=== PATIENT | male | born 1965 | race Caucasian/White ===

== ENCOUNTER 2024-10-05 15:00 | Outpatient (RCR) | payer OTHER, SELFPAY ==
--- NOTE | 2024-07-20 16:23 | HMH.PTOPWND ---
Rehab Outpt Wound Evaluation Rehab OP Wound Evaluation Start: 07/20/24 16:02 Freq: Status: Active Protocol: Document 07/20/24 16:04 ANOOP (Rec: 07/20/24 16:23 PHOJOAN [id number]) E-signed By Devaughn Swartz, PT Subjective/History History History This is the initial PT eval for Emmett Marquez, 58 yowm who presents with c/o L LE wounds with increased pain x ~ 2 mos. He reports the wounds have been worse since, some boxes fell on me and scraped down my leg. He reports increased edema as well as tenderness to palpation throughout the L lower leg. He reports PMH of CHF, COPD, and PE with recent hospitalization. He is currently taking oral abx as prescribed. He reports he continues to smoke cigarettes. Subjective Subjective Current pain 8/10 in the L LE. 3/4 TTP to L lower leg with 3 + pitting, putty-like edema. Increased blanchable erythema throughout L lower leg and mild hyperkeratosis. New diagnosis of cancer in past 12 No months? Wound Eval Wound Left Anterior Waddell Wound Type Skin Tear Is This a Chronic Wound Yes Wound Length (cm) 11.3 Wound Width (cm) 6.0 Wound Depth (cm) 0.1 Wound Bed Appearance Yellow Percentage of Slough (%) 100 Wound Margins Description Well Defined Surrounding Tissue Appearance Bright Red,Dark Red Edema Type Pitting Edema Degree 3+ Query Text:1+ Trace, Barely Detectable, Rebound 15-30 seconds 2+ Moderate, Slight Indentation, Rebound 10-20 seconds 3+ Deep, Deeper Indentation, Rebound > 30 seconds 4+ Very Deep, Rebound > 60 seconds Edema Appearance Hard,Open Sores,Purple Drainage Description Serous Drainage Amount Moderate Wound Topical Solution/Irrigant Saline Irrigant Primary Dressing Unna Boot Comment 2 layer calamine co-flex compression wrap Wound Debridement Method Forceps,Gauze,Mechanical Wound Debridement Amount of Tissue Moderate Removed Dressing Change Patient Tolerance Tolerated Well Wound Problems/Impairments Impairments Problems/Impairmments Palpation Tenderness,Impaired Endurance,Impaired Walking, Impaired Shower/Bathing, Impaired Household Care, Increased Edema,Lymphedema Present,Wound Care Needs, Subjective C/O Pain,Impaired Self Care/Self Management Prognosis Rehab Potential Good Comment Skilled therapy is indicated to reduce overall wound burden and return pt to PLOF. Clinical Impression Consistent with Diagnosis Yes Short Term Goals Number of Weeks 2 Decreased Palpation Tenderness Yes: 2/4 L lower leg Decrease Edema Yes: 2+ pitting edema L LE Decrease Wound Area Yes: by 25% Decrease Subjective C/O Pain Yes: 6/10 L LE Technical Services Consultant Goals Number of Weeks 4 Decreased Palpation Tenderness Yes: 1/4 L lower leg Decrease Edema Yes: 1+ pitting edema L LE Decrease Wound Area Yes: by 75% Decrease Subjective C/O Pain Yes: 4/10 L LE Patient to be Ind w/ Home Wound Care/ Yes Dressing Changes Outpatient Therapy Plan of Care Treatment Plan May Include Therapeutic Exercise Including Home Yes Exercise Program Manual Therapy Techniques Yes Neuromuscular Re-education Yes Orthotics/Bracing/Splinting Yes Manual Lymphatic Drainage Yes Wound Care Yes Eval/Re-Eval Yes Frequency Times per week 2-3 Duration Number of Weeks 4 Addendums This patient is a candidate for social No or vocational rehab? Patient/Guardian verbally acknowledges Yes understanding of treatment program and consents to further treatment? Patient/Guardian verbally acknowledges Yes understanding of diagnosis, prognosis and goals for treatment? Eval Complexity PT Charges 78596 - High Complexity PHYSICIAN CERTIFICATION: I certify the specified therapy services for Emmett Marquez are required, authorized, and reviewed every 30 days.
--- NOTE | 2024-08-22 16:40 | HMH.RHREAS ---
Rehab Reassessment Rehab OP Re-assessment Start: 07/20/24 16:02 Freq: Status: Active Protocol: Document 08/22/24 16:35 LILLIANANimaARABELLA (Rec: 08/22/24 16:40 PHOJOAN [id number]) E-signed By Devaughn Swartz, PT Rehab Re-assessment Subjective Subjective Pt reports he continues to have pain in his L lower leg, but not as much as during his initial eval. He does report there have been days where he had no pain. He feels much better overall about his leg wound. Objective Objective Notes L anterior ballard wound: L= 3.2 cm, W= 2.2 cm, D= 0.1 cm. TTP: 01/03 negrito-wound skin Edema: 1+ pitting edema L lower leg this date. Assessment Progress Assessment Progressing as Expected Assessment Notes Pt has shown significant improvement in overall wound surface area. He does continue to show yellow slough in the wound bed. Skilled therapy remains indicated to reduce wound surface area and return pt to PLOF. Patient goals met ST/4 LT/5 Plan Plan Continue per initial POC. Frequency of Therapy 2 x/wk Duration of therapy 4 wks Time and Billing Re-Eval Time 12 Re-Eval Billing Units 0 PHYSICIAN CERTIFICATION: I certify the specified therapy services for Emmett Marquez are required, authorized, and reviewed every 30 days.
--- NOTE | 2024-09-22 16:14 | HMH.RHREAS ---
Rehab Reassessment Rehab OP Re-assessment Start: 07/20/24 16:02 Freq: Status: Active Protocol: Document 09/22/24 16:11 ANOOP (Rec: 09/22/24 16:14 PHORARABELLA [id number]) E-signed By Devaughn Swartz PT Rehab Re-assessment Subjective Subjective Pt reports he continues to have tenderness to touch, but overall feels less pain. Objective Objective Notes L anterior ballard wound: L= 4.0 cm, W= 1.2 cm, D= 0.2 cm. TTP: 01/03 negrito-wound skin Edema: 1+ pitting edema L lower leg this date. Assessment Progress Assessment Progressing as Expected Assessment Notes Pt continues to show steady decline in overall wound surface area, but he does continue to need assistance with further healing. Skilled therapy remains indicated to return to PLOF. Patient goals met ST/4 LT/5 Plan Plan Continue per initial POC. Frequency of Therapy 2 x/wk Duration of therapy 4 wks Time and Billing Re-Eval Time 11 Re-Eval Billing Units 0 PHYSICIAN CERTIFICATION: I certify the specified therapy services for Emmett Marquez are required, authorized, and reviewed every 30 days.
== END 2024-10-05 23:59 | disposition home or self-care (01) ==
LOC: PT 15:00
PROVIDERS: Visit Provider Nurse Practitioner Family
DX: L03.116 Cellulitis of left lower limb (principal); T07.XXXA Unspecified multiple injuries, initial encounter
CPT/HCPCS: 97163; 97164; 97597

== ENCOUNTER 2024-11-15 14:42 | Outpatient (RCR) | payer OTHER, SELFPAY ==
--- NOTE | 2024-11-15 15:41 | HMH.PTOPWND ---
Rehab Outpt Wound Evaluation Rehab OP Wound Evaluation Start: 11/15/24 14:56 Freq: Status: Active Protocol: Document 11/15/24 15:25 ANOOP (Rec: 11/15/24 15:41 PHORNE [id number]) E-signed By Devaughn Swartz, PT Subjective/History History History This is the initial PT eval for Emmett Marquez, 58 yowm who presents with c/o L LE wounds with increased pain x ~ 6 mos. He reports the wounds have been worse since, some boxes fell on me and scraped down my leg. He reports increased edema as well as tenderness to palpation throughout the L lower leg. He was previously a patient of this clinic, but had an illness an was unable to come to therapy for ~ 1 mo. He reports PMH of CHF, COPD, and PE with hospitalization earlier this year. He reports he continues to smoke cigarettes. Subjective Subjective Currently he reports no pain at rest. TTP 2/4 in and around L lower leg wounds. Moderate L LE erythema note. 1+ pitting edema throughout the L lower leg this date. New diagnosis of cancer in past 12 No months? Wound Eval Wound Left Lower Lateral Waddell Wound Type Stasis Ulcer Is This a Chronic Wound Yes Wound Length (cm) 0.5 Wound Width (cm) 0.4 Wound Depth (cm) 0.1 Wound Bed Appearance Beefy Red Wound Margins Description Well Defined Surrounding Tissue Appearance Bright Red Edema Type Pitting Edema Degree 1+ Query Text:1+ Trace, Barely Detectable, Rebound 15-30 seconds 2+ Moderate, Slight Indentation, Rebound 10-20 seconds 3+ Deep, Deeper Indentation, Rebound > 30 seconds 4+ Very Deep, Rebound > 60 seconds Drainage Description Serosanguineous Drainage Amount Small Wound Topical Solution/Irrigant Saline Irrigant Primary Dressing Silver Dressing Comment opticell Ag Wound Secondary Dressing Type Composite Comment optifoam gentle border lite Wound Debridement Method Gauze,Mechanical Wound Debridement Amount of Tissue None Removed Dressing Change Patient Tolerance Tolerated Well Left Upper Lateral Waddell Wound Type Stasis Ulcer Is This a Chronic Wound Yes Wound Length (cm) 1.5 Wound Width (cm) 1.1 Wound Depth (cm) 0.1 Wound Bed Appearance Beefy Red Wound Margins Description Well Defined Surrounding Tissue Appearance Bright Red Edema Type Pitting Edema Degree 1+ Query Text:1+ Trace, Barely Detectable, Rebound 15-30 seconds 2+ Moderate, Slight Indentation, Rebound 10-20 seconds 3+ Deep, Deeper Indentation, Rebound > 30 seconds 4+ Very Deep, Rebound > 60 seconds Drainage Description Serosanguineous Drainage Amount Small Wound Topical Solution/Irrigant Saline Irrigant Primary Dressing Silver Dressing Comment opticell Ag Wound Secondary Dressing Type Composite Comment optifoam gentle border lite Wound Debridement Method Forceps,Gauze,Mechanical Wound Debridement Amount of Tissue Minimal Removed Dressing Change Patient Tolerance Tolerated Well Left Anterior Waddell Wound Type Stasis Ulcer Is This a Chronic Wound Yes Wound Length (cm) 1.8 Wound Width (cm) 2.0 Wound Depth (cm) 0.2 Wound Bed Appearance Beefy Red,Yellow Percentage Granulated (%) 25 Percentage of Slough (%) 75 Wound Margins Description Well Defined Surrounding Tissue Appearance Bright Red Edema Type Pitting Edema Degree 1+ Query Text:1+ Trace, Barely Detectable, Rebound 15-30 seconds 2+ Moderate, Slight Indentation, Rebound 10-20 seconds 3+ Deep, Deeper Indentation, Rebound > 30 seconds 4+ Very Deep, Rebound > 60 seconds Drainage Description Serosanguineous Drainage Amount Small Wound Topical Solution/Irrigant Saline Irrigant Primary Dressing Silver Dressing Comment opticell Ag Wound Secondary Dressing Type Composite Comment optifoam gentle border Wound Debridement Method Sharps,Forceps,Gauze, Mechanical Wound Debridement Amount of Tissue Minimal Removed Wound Debridement Result Patient Unable to Tolerate, Yellow Sloughing Remains Dressing Change Patient Tolerance Tolerated Poorly Lymphedema Eval Classification of Lymphedema Secondary Lymphedema Yes Stemmer's sign Stemmer's Sign yes Stage of Lymphedema Lymphedema stages Stage II (Pitting edema, increased fibrosis w/ decreased pitting) Skin Changes Dry Skin Yes Taut, Shiny Skin Yes Hyperkeratosis Yes Redness Yes Brittle Uneven Nails Yes Discoloration of Skin Yes Other Changes Yes Affected Extremities Areas Affected by Lymphedema/Edema Left Lower Extremity Manual Lymphatic Drainage Treatment Area MLD Treatment Area Left Lower Extremity Wound Problems/Impairments Impairments Problems/Impairmments Palpation Tenderness,Impaired Walking,Impaired Standing, Impaired Shower/Bathing, Increased Edema,Lymphedema Present,Wound Care Needs, Subjective C/O Pain,Impaired Self Care/Self Management Prognosis Rehab Potential Good Comment Skilled therapy is indicated to reduce overall edema burden , decrease overall wound size, and aid pt return to PLOF. Clinical Impression Consistent with Diagnosis Yes Consistent with S81.802 L lower leg wound Short Term Goals Number of Weeks 4 Decreased Palpation Tenderness Yes: 1/4 L lower leg Decrease Wound Area Yes: by 25% Patient to Understand Lymphedema Yes Treatment and Exercises Decrease Girth Measurments by (cm) Yes: L LE total by 5 cm Inspector Quality Assurance Goals Number of Weeks 8 Decreased Palpation Tenderness Yes: 0/4 L lower leg Decrease Lymphedema Yes: No pitting edema or hyperkeratosis L LE Decrease Wound Area Yes: by 75% L lower leg Patient to be Ind w/ HEP Yes Patient to be Ind w/ Home Wound Care/ Yes Dressing Changes Patient to Adhere Lymphedema Precautions Yes Decrease Girth Measurments by (cm) Yes: L LE total by 15 cm Outpatient Therapy Plan of Care Treatment Plan May Include Therapeutic Exercise Including Home Yes Exercise Program Manual Therapy Techniques Yes Neuromuscular Re-education Yes Therapeutic Activities to Return to Yes Previous Functional/Work Level ADL/Self Care Education Yes Orthotics/Bracing/Splinting Yes Manual Lymphatic Drainage Yes Wound Care Yes Eval/Re-Eval Yes Frequency Times per week 2-3 Duration Number of Weeks 8 Addendums This patient is a candidate for social No or vocational rehab? Patient/Guardian verbally acknowledges Yes understanding of treatment program and consents to further treatment? Patient/Guardian verbally acknowledges Yes understanding of diagnosis, prognosis and goals for treatment? Eval Complexity PT Charges 00595 - High Complexity PHYSICIAN CERTIFICATION: I certify the specified therapy services for Emmett Marquez are required, authorized, and reviewed every 30 days.
== END 2024-11-15 23:59 | disposition home or self-care (01) ==
LOC: PT 14:42
PROVIDERS: Visit Provider Internal Medicine Adolescent Medicine
DX: I89.0 Lymphedema, not elsewhere classified (principal)
CPT/HCPCS: 97163

== ENCOUNTER 2024-12-29 16:00 | Outpatient (RCR) | payer OTHER, SELFPAY ==
--- NOTE | 2024-12-29 16:45 | HMH.RHREAS ---
Rehab Reassessment Rehab OP Re-assessment Start: 12/01/24 15:47 Freq: Status: Active Protocol: Document 12/29/24 16:29 PHORARABELLA (Rec: 12/29/24 16:45 PHORNE [id number]) E-signed By Devaughn Swartz, PT Aissatou Wound Assessment Tool Assessment Wound size 1=Length x Width <4 sq cm Wound depth 3=Full thickness skin loss involving damage or necrosis of Wound edges 3=Well-defined, not attached to wound base Wound undermining 1=None present Necrotic tissue type 2=White/shanks non-viable tissue &/or non-adherent yellow slough Necrotic tissue amount 4=>50% and <75% of wound covered Exudate type 3=Serosanguineous: thin, watery, pale red/pink Exudate amount 3=Small Skin color surrounding wound 2=Bright red &/or blanches to touch Peripheral tissue edema 3=Non-pitting edema extends > or= to 4 cm around wound Peripheral tissue induration 1=None present Granulation tissue 4=Smolan, &/or dull, dusky red & /or fills < or = 25% of wound Epithelialization 5= < 25% wound covered Wound assessment total score 35 Rehab Re-assessment Subjective Subjective Pt continues to report pain in the L lower leg, 6/10 at this time. He also reports significant tenderness with debridement of all wounds. Objective Objective Notes L lower leg wounds: Superior Lateral ballard= L 0.9 cm, W 1.2 cm, D 0.3 cm Middle Anterior ballard= L 1.1 cm , W 1.4 cm, D 0.3 cm Inferior Lateral ballard= L 1.0 cm, W 1.5 cm, D 0.2 cm Pain 6/10 in L lower leg Edema: 1+ pitting edema remains throughout L lower leg . Assessment Progress Assessment Progressing as Expected Assessment Notes Pt has shown some improvements in overall wound surface area in total on the L lower leg, however, wound depth appears to be slightly increased. Skilled therapy is indicated to decrease overall wound surface area, reduce pain, decrease edema and aid pt return to PLOF. Patient goals met ST/ LT/7 Plan Plan Continue per initial POC. Frequency of Therapy 1-2 x/wk Duration of therapy 4 wks Time and Billing Re-Eval Time 11 Re-Eval Billing Units 1 Charge for PT reassessment? Yes PHYSICIAN CERTIFICATION: I certify the specified therapy services for Emmett Marquez are required, authorized, and reviewed every 30 days.
== END 2024-12-29 23:59 | disposition home or self-care (01) ==
LOC: PT 16:00
PROVIDERS: Visit Provider Internal Medicine Adolescent Medicine
DX: I89.0 Lymphedema, not elsewhere classified (principal)
CPT/HCPCS: 97164; 97597

== ENCOUNTER 2025-01-06 15:57 | Outpatient (RCR) | payer OTHER, SELFPAY | END 2025-01-06 23:59 | disposition home or self-care (01) | LOC: PT 15:57 | PROVIDERS: Visit Provider Internal Medicine Adolescent Medicine | DX: I89.0 Lymphedema, not elsewhere classified (principal) | CPT/HCPCS: 97597 ==

== ENCOUNTER 2025-03-27 16:00 | Outpatient (RCR) | payer OTHER, SELFPAY ==
--- NOTE | 2025-03-13 17:03 | HMH.PTOPWND ---
Rehab Outpt Wound Evaluation Rehab OP Wound Evaluation Start: 03/13/25 16:46 Freq: Status: Active Protocol: Document 03/13/25 16:46 ANOOP (Rec: 03/13/25 17:01 PHORARABELLA [id number]) E-signed By Devaughn Swartz, PT Subjective/History History History This is the initial PT lymphedema and wound care eval for Emmett Marquez, 59 yowm who presents with c/o L LE wounds with increased edema and pain x ~ 1-2 mos this episode. He reports increased edema as well as tenderness to palpation throughout the L lower leg. He was previously a patient of this clinic, but has been unable to finish treatment due to multiple personal issues. He reports PMH of CHF, COPD, and PE with hospitalization earlier this year. He reports he continues to smoke cigarettes. Subjective Subjective Currently pt reports pain is 9 /10 throughout the L lower leg , 10/10 at worst. H reports increased redness and 3/4 TTP in the wound areas. 2+ pitting edema noted to L lower leg with MILD fibrotic edema and Moderate hyperkeratosis noted also. Multiple small wounds noted to the L lower leg in various stages of healing. Wound Eval Wound Left Lower Anterior Waddell Wound Type unknown etiology Is This a Chronic Wound Yes Wound Length (cm) 1.1 Wound Width (cm) 1.2 Wound Depth (cm) 0.8 Wound Bed Appearance Yellow Percentage of Slough (%) 100 Wound Margins Description Well Defined Surrounding Tissue Appearance Bright Red Edema Type Pitting Edema Degree 2+ Query Text:1+ Trace, Barely Detectable, Rebound 15-30 seconds 2+ Moderate, Slight Indentation, Rebound 10-20 seconds 3+ Deep, Deeper Indentation, Rebound > 30 seconds 4+ Very Deep, Rebound > 60 seconds Drainage Description Purulent Drainage Amount Moderate Wound Topical Solution/Irrigant Saline Irrigant Packing Type Specialty Absorptive Comment opticell Ag Primary Dressing Composite Comment optifoam genlte border Wound Secondary Dressing Type Gauze Roll/Wrap,Adhering Gauze Roll Wound Debridement Method Sharps,Forceps,Gauze, Mechanical Wound Debridement Amount of Tissue Minimal Removed Wound Debridement Result Patient Unable to Tolerate Dressing Change Patient Tolerance Tolerated Well Left Upper Lateral Waddell Wound Type unknown etiology. Is This a Chronic Wound Yes Wound Length (cm) 1.0 Wound Width (cm) 1.0 Wound Depth (cm) 0.4 Wound Bed Appearance Yellow Percentage of Slough (%) 100 Wound Margins Description Well Defined Surrounding Tissue Appearance Bright Red Edema Type Pitting Edema Degree 2+ Query Text:1+ Trace, Barely Detectable, Rebound 15-30 seconds 2+ Moderate, Slight Indentation, Rebound 10-20 seconds 3+ Deep, Deeper Indentation, Rebound > 30 seconds 4+ Very Deep, Rebound > 60 seconds Drainage Description Purulent Drainage Amount Moderate Wound Topical Solution/Irrigant Saline Irrigant Packing Type Specialty Absorptive Comment opticell Ag Primary Dressing Composite Comment optifoam gentle border Wound Secondary Dressing Type Gauze Roll/Wrap,Adhering Gauze Roll Wound Debridement Method Sharps,Forceps,Gauze, Mechanical Wound Debridement Amount of Tissue Minimal Removed Wound Debridement Result Patient Unable to Tolerate Dressing Change Patient Tolerance Tolerated Well Negro-Solitario Wound Assessment Tool Assessment Wound size 1=Length x Width <4 sq cm Wound depth 4=Obscured by necrosis Wound edges 3=Well-defined, not attached to wound base Wound undermining 1=None present Necrotic tissue type 3=Loosely adherent yellow slough Necrotic tissue amount 5=75% to 100% of wound covered Exudate type 5=Purulent: thin or thick, opaque, garnett/yellow, withour without odor Exudate amount 4=Moderate Skin color surrounding wound 2=Bright red &/or blanches to touch Peripheral tissue edema 4=Pitting edema extends <4 cm around wound Peripheral tissue induration 1=None present Granulation tissue 5=No granulation tissue present Epithelialization 5= < 25% wound covered Wound assessment total score 43 Lymphedema Eval Classification of Lymphedema Secondary Lymphedema Yes Stemmer's sign Stemmer's Sign yes Stage of Lymphedema Lymphedema stages Stage II (Pitting edema, increased fibrosis w/ decreased pitting) Skin Changes Dry Skin Yes Taut, Shiny Skin Yes Skin Folds Yes Hyperkeratosis Yes Redness Yes Brittle Uneven Nails Yes Discoloration of Skin Yes Other Changes Yes Pain Scale Pain Scale (0-10) 10 Affected Extremities Areas Affected by Lymphedema/Edema Left Lower Extremity Manual Lymphatic Drainage Treatment Area MLD Treatment Area Left Lower Extremity Wound Problems/Impairments Impairments Problems/Impairmments Palpation Tenderness,Impaired Shower/Bathing,Impaired Household Care,Increased Edema ,Lymphedema Present,Wound Care Needs,Subjective C/O Pain, Impaired Self Care/Self Management Prognosis Rehab Potential Good Comment Skilled therapy is indicated to reduce overall lymphedema burden and aid pt wound healing in order to return pt to PLOF. Clinical Impression Consistent with Diagnosis Yes Consistent with also: Additional details: S81. 802A L Lower leg wound of unknown etiology Short Term Goals Number of Weeks 4 Decreased Palpation Tenderness Yes: 1/4 L lower leg Decrease Edema Yes: 1+ pitting edema L lower leg Decrease Wound Area Yes: by 25% Decrease Subjective C/O Pain Yes: 7/10 L lower leg Patient to Understand Lymphedema Yes Treatment and Exercises Decrease Girth Measurments by (cm) Yes: L LE total by 5 cm Alf Goals Number of Weeks 8 Decreased Palpation Tenderness Yes: 0/4 L lower leg Decrease Lymphedema Yes: No pitting edema and No fibrotic edema with minimal hyperkeratosis. Decrease Wound Area Yes: by 75% Decrease Subjective C/O Pain Yes: 3/10 L lower leg Patient to be Ind w/ HEP Yes Patient to Adhere Lymphedema Precautions Yes Decrease Girth Measurments by (cm) Yes: L LE by 10 cm total Outpatient Therapy Plan of Care Treatment Plan May Include Therapeutic Exercise Including Home Yes Exercise Program Manual Therapy Techniques Yes Neuromuscular Re-education Yes Therapeutic Activities to Return to Yes Previous Functional/Work Level ADL/Self Care Education Yes Orthotics/Bracing/Splinting Yes Manual Lymphatic Drainage Yes Wound Care Yes Eval/Re-Eval Yes Frequency Times per week 2 Duration Number of Weeks 8 Addendums This patient is a candidate for social No or vocational rehab? Patient/Guardian verbally acknowledges Yes understanding of treatment program and consents to further treatment? Patient/Guardian verbally acknowledges Yes understanding of diagnosis, prognosis and goals for treatment? Eval Complexity PT Charges 27454 - High Complexity PHYSICIAN CERTIFICATION: I certify the specified therapy services for Emmett Marquez are required, authorized, and reviewed every 30 days.
== END 2025-03-27 23:59 | disposition home or self-care (01) ==
LOC: PT 16:00
PROVIDERS: Visit Provider Internal Medicine Adolescent Medicine
DX: I89.0 Lymphedema, not elsewhere classified (principal); L03.116 Cellulitis of left lower limb; S81.802A Unspecified open wound, left lower leg, initial encounter
CPT/HCPCS: 97163

== ENCOUNTER 2025-04-27 16:00 | Outpatient (RCR) | payer OTHER, SELFPAY ==
--- NOTE | 2025-04-17 17:01 | HMH.RHREAS ---
Rehab Reassessment Rehab OP Re-assessment Start: 04/17/25 16:48 Freq: Status: Active Protocol: Document 04/17/25 16:48 LILLIANANimaARABELLA (Rec: 04/17/25 17:01 PHORNE [id number]) E-signed By Devaughn Swartz, PT Aissatou Wound Assessment Tool Assessment Wound size 1=Length x Width <4 sq cm Wound depth 4=Obscured by necrosis Wound edges 3=Well-defined, not attached to wound base Wound undermining 1=None present Necrotic tissue type 3=Loosely adherent yellow slough Necrotic tissue amount 5=75% to 100% of wound covered Exudate type 5=Purulent: thin or thick, opaque, garnett/yellow, withour without odor Exudate amount 4=Moderate Skin color surrounding wound 2=Bright red &/or blanches to touch Peripheral tissue edema 2=Non-pitting edema extends <4 cm around wound Peripheral tissue induration 1=None present Granulation tissue 5=No granulation tissue present Epithelialization 5= < 25% wound covered Wound assessment total score 41 Rehab Re-assessment Subjective Subjective Pt reports much less pain overall in the L lower leg at this time and he feels slight decrease in edema overall. He feels his leg is doing better and he continues to work without slowing down. Has an appointment with vascular surgery coming up soon. Objective Objective Notes L Superior lateral ballard wound: L= 1.0 cm, W= 1.7 cm, D= 0.3 cm 100% yellow slough, moderately adhered. L Anterior inferior ballard wound : L= 1.3 cm, W= 1.5 cm, D= 0.3 cm 100% yellow slough, moderately adhered. Edema: 1+ pitting edema noted throughout L lower leg. Pain: 7/10 L lower leg. TTP: 1/4 with dressing changes to negrito-wound skin. Assessment Progress Assessment Progressing as Expected Assessment Notes Pt has shown reduction of L lower leg edema and decreased pain overall. He continues to have pitting edema, increased L lower leg wound surface area , and difficulty with ADLs due to edema and wounds. Skilled therapy remains indicated in order to return pt to [facility]. Patient goals met ST/6 LT/7 Plan Plan Continue per initial POC. Frequency of Therapy 1-2 x/wk Duration of therapy 4 wks Time and Billing Re-Eval Time 11 Re-Eval Billing Units 1 Charge for PT reassessment? Yes PHYSICIAN CERTIFICATION: I certify the specified therapy services for Emmett Marquez are required, authorized, and reviewed every 30 days.
== END 2025-04-27 23:59 | disposition home or self-care (01) ==
LOC: PT 16:00
PROVIDERS: Visit Provider Internal Medicine Adolescent Medicine
DX: I89.0 Lymphedema, not elsewhere classified (principal)
CPT/HCPCS: 97164; 97597

== ENCOUNTER 2025-05-07 02:19 | Emergency (ER) | payer OTHER, SELFPAY ==
[2025-05-07] VITALS (8 sets, daily range): BP systolic 113–126; BP diastolic 69–79; PULSE 75–82; RESP 15–19; TEMP 37.2; O2SAT 92–97; BMI 28.1
--- NOTE | 2025-05-07 02:20 | ECG_ITS ---
APPROVED REPORT Exam: Resting ECG HR:61 bpm ECG Measurements Heart Rate [address] 179 P 58 QRSd 173 QRS 84 QT 430 T 75 QTc 434 Conclusion SINUS RHYTHM LEFT BUNDLE BRANCH BLOCK [120+ ms QRS DURATION, 80+ ms Q/S IN V1/V2, 85+ ms R IN I/aVL/V5/V6] ABNORMAL ECG UNCONFIRMED REPORT Electronically signed by : DANIEL ARTIS, 05/08/2025 06:40:43
--- NOTE | 2025-05-07 02:20 | XR_ITS ---
PROCEDURE INFORMATION: Exam: XR Chest Exam date and time: 05/07/2025 2:56 AM Age: 59 years old Clinical indication: Sternal or substernal pain; Additional info: Chest/epigastric pain TECHNIQUE: Imaging protocol: Radiologic exam of the chest. Views: 1 view. COMPARISON: CR XR CHEST PORTABLE 05/07/2025 2:56 AM FINDINGS: Lungs: Unremarkable. No consolidation. Pleural spaces: Unremarkable. No pleural effusion. No pneumothorax. Heart/Mediastinum: Unremarkable. No cardiomegaly. Bones/joints: Unremarkable. IMPRESSION: No acute findings.
--- NOTE | 2025-05-07 02:21 | HMH.EDCP ---
Discharge Plan Disposition Patient Disposition: Home, Self-Care Condition: Good Referrals Follow up/Referrals: Odell Salcido MD [Staff Physician, Cardiology] - See instructions Referral Note: Cardiac patient with previous ID, reassuring ER chest pain workup, no longer able to see his old substance abuse nurse and wants to establish care with you Ernie Bertrand MD [Primary Care Provider, Internal Medicine] - See instructions Referral Note: ER visit follow-up, recheck liver labs Activity Restrictions/Add. Instructions Additional Instructions/Restrictions: You were evaluated in the ER and are appropriate for discharge at this time. Continue taking your home medications as previously prescribed. Call the cardiology office first thing Thursday morning and make an appointment for immediate follow-up. Also follow-up with your primary care doctor and have them recheck your liver labs. Return to the ER with any new, worsening, or otherwise concerning symptoms Clinical Impressions Clinical Impression: Chest pain, LBBB (left bundle branch block), Transaminitis, Hyperbilirubinemia Print Language Print Language: Korean Discharge ED Provider: Jayesh Lynn General Chief Complaint: Chest Pain Stated Complaint: Chest pain Time Seen by Provider: 05/07/25 02:20 Mode of Arrival: EMS Source of Information: Patient and EMS Description of Symptoms (Recalled from ER Triage Doc. by RN): Pt presents with c/o epigastric pain and pressure that began approx 2200 05/06/25 while lying down for bed, Pt reports pain intermittent but has almost completely gone since being medicated per EMS. Pt denies SOA, N/V. Pt reports ID appros 2-3 years ago. History of Present Illness HPI narrative: 59-year-old male presents to the ER with epigastric pain and pressure that started 4 hours prior to arrival while he was laying in bed. He states he was not asleep but the pain started out of the blue and was sudden and severe, stabbing in the epigastric region and radiating around both sides but not through to the back. He does not describe a tearing sensation. He states he took omeprazole at home without relief of symptoms. He ended up calling EMS. EMS reports they provided aspirin and nitro to the patient and patient states after receiving nitro his symptoms completely resolved. He had no nausea or vomiting, no difficulty breathing. Patient does report history of ID but has no stents. He states he has no numbness, tingling, or weakness. He does have a history of lymphedema. Patient has no abdominal pain or chest pain at this time, no dizziness or headache, no other associated symptoms, no recent illness. Related Data Allergies Allergy/AdvReac Type Severity Reaction Status Date / Time No Known Allergies Allergy Verified 05/07/25 02:44 [facility] Disclaimer: The information contained in this section may have been updated after the patient was seen, as this information can be updated by other users. Social History Smoking Status: Current every day smoker alcohol intake: never current occupational status: other Travel in the last 8 weeks?: None ROS Obtained: Yes Systems reviewed as appropriate & no additional complaints except as documented Per HPI Physical Exam General General appearance: alert and in no apparent distress Head Head exam: atraumatic and normocephalic Eye Eye exam: Present PERRL and EOMI ENT ENT exam: Present mucous membranes moist Neck Neck exam: Present normal inspection and full ROM Chest Chest inspection: Present symmetric chest wall rise Respiratory Respiratory exam: Present normal lung sounds bilaterally; Absent respiratory distress, wheezes or stridor Cardiovascular Cardiovascular exam: Present regular rate and normal rhythm Abdominal Exam Abdominal exam: Present soft; Absent distention, tenderness, guarding or rebound Extremities Exam Extremities exam: Present full ROM and edema (Mild bilateral lower extremities, patient has compressive wrap on the distal left lower extremity with evidence of venous stasis changes to the skin) Neurological Exam Neurological exam: Present alert and oriented X3; Absent motor sensory deficit Psychiatric Psychiatric exam: Present normal affect and normal mood Skin Skin exam: Present warm and dry HEART Score HEART Score HEART Score assessment performed?: Yes History (anamnesis): Slightly suspicious ECG: Non-specific disturbance Age: 45-65 years Risk factors: Atherosclerosis history Troponin: </= normal limit HEART Score: 4 Critical Care Critical Care Time Critical Care Time: No Medical Decision Making Miky Inquiry Pt receiving controlled substance: No Vital Signs Vital Signs: 05/07/25 02:10 05/07/25 02:16 05/07/25 03:00 Temperature 98.9 F Temperature Source Oral Pulse Rate 79 75 Pulse Rate [Radial] 79 Respiratory Rate 16 15 Blood Pressure 118/69 Blood Pressure [Right Arm] 126/79 Blood Pressure Mean [Right Arm] 94 Blood Pressure Position [Right Arm] Sitting 02 Sat by Pulse Oximetry 92 L 97 Oxygen Delivery Method Room Air 05/07/25 03:30 05/07/25 04:00 05/07/25 04:30 Temperature Temperature Source Pulse Rate 82 78 75 Pulse Rate [Radial] Respiratory Rate 17 17 19 Blood Pressure 113/70 122/77 118/73 Blood Pressure [Right Arm] Blood Pressure Mean [Right Arm] Blood Pressure Position [Right Arm] 02 Sat by Pulse Oximetry 95 95 95 Oxygen Delivery Method 05/07/25 05:00 Temperature Temperature Source Pulse Rate 79 Pulse Rate [Radial] Respiratory Rate 19 Blood Pressure 114/77 Blood Pressure [Right Arm] Blood Pressure Mean [Right Arm] Blood Pressure Position [Right Arm] 02 Sat by Pulse Oximetry 96 Oxygen Delivery Method Lab Data Labs: Lab Results 05/07/25 02:16: WBC 7.9, RBC 4.78, Hgb 16.7, Hct 50.0, MCV 104.6 H, MCH 34.9 H, MCHC 33.4, RDW 13.3, Plt Count 220, MPV 9.5, Neut % (Auto) 75.5, Lymph % (Auto) 16.2, Atkinson % (Auto) 5.7, Eos % (Auto) 1.8, Baso % (Auto) 0.4, Neut # (Auto) 6.0, Lymph # (Auto) 1.3, Atkinson # (Auto) 0.5, Eos # (Auto) 0.1, Baso # (Auto) 0.0, PT 12.4, INR 1.13 H, D-Dimer 0.49, Sodium 138, Potassium 4.0, Chloride 102, Carbon Dioxide 33 H, Anion Gap 7.0, BUN 10, Creatinine 0.90, Estimated Creat Clear 102, Estimated GFR 86, Est GFR ( Amer) 105, Glucose 166 H, Calcium 9.2, Total Bilirubin 1.8 H, AST 128 H, ALT 57, Alkaline Phosphatase 164 H, Troponin I < 0.01, NT-Pro-B Natriuret Pep 88.1, Total Protein 8.0, Albumin 4.0, Globulin 4.0 H, Albumin/Globulin Ratio 1.0 L, Lipase 49 05/07/25 04:48: Troponin I < 0.01 05/07/25 02:16 05/07/25 02:16 Response Orders (Tests/Meds): ORDERS Category Date Time Status XR chest portable Stat Exams 05/07/25 02:20 Completed Complete Blood Count Auto Diff Stat Lab 05/07/25 02:16 Completed Comprehensive Metabolic Panel Stat Lab 05/07/25 02:16 Completed D-Dimer Stat Lab 05/07/25 02:16 Completed Lipase Stat Lab 05/07/25 02:16 Completed NT Pro Brain Natriuretic Pep. Stat Lab 05/07/25 02:16 Completed Prothrombin Time INR Stat Lab 05/07/25 02:16 Completed Troponin I Q3H Lab 05/07/25 04:48 Completed Troponin I Q3H Lab 05/07/25 08:30 Ordered Troponin I Stat Lab 05/07/25 02:20 Completed MDM Narrative Medical Decision Narrative: In summary, this 59-year-old male with comorbidities described in the HPI which may not be at goal therapy presents to the emergency department today with epigastric pain that was sudden and severe. On initial evaluation patient is hemodynamically stable, afebrile, GCS 15, he is currently pain-free with benign cardiopulmonary exam, benign abdomen, patient has very slight lower extremity pitting edema and evidence of venous stasis changes in the left lower extremity, he states his legs appear at baseline. Differential diagnosis includes but is not limited to ACS, PE, pancreatitis, esophageal spasm, electrolyte abnormality, I had considered dissection but patient does not have red flag symptoms of this and the pain from dissection would not be eliminated with aspirin and nitro, among others. Based on these concerns, I ordered serum labs, cardiac workup, chest x-ray. ECG personally interpreted demonstrates sinus rhythm, rate 61, normal axis, normal MI, left bundle branch block present, normal QTc, no STEMI Labs personally reviewed demonstrate no leukocytosis or anemia, platelets normal, PT normal, INR slightly elevated at 1.13, nonspecific and nonactionable, D-dimer normal at 0.49, PE excluded and CTA PE not indicated. Normal D-dimer also offer significant reassurance against dissection. CMP with elevation in AST, alk phos, and mild hyperbilirubinemia, no prior labs available for comparison. Initial troponin undetectably low less than 0.01. Chest x-ray personally interpreted does not demonstrate acute intrathoracic abnormality, see radiology read for final interpretation. Patient placed in the ED observation at 0315 for serial troponins to rule out evolving ID and preclude unnecessary admission. Patient remained on the web merchant and was frequently reassessed while in the ER. He has remained asymptomatic, resting comfortably, required no further intervention. Repeat troponin undetectably low less than 0.01. I believe patient is appropriate for outpatient follow-up. He is agreeable to this plan. He feels well. He would like referral to Dr. Salcido since he is no longer able to see his old substance abuse nurse. Referral was placed and he was instructed to follow-up with cardiology first thing Thursday (tomorrow) He was also given instructions to follow-up closely with his PCP to reevaluate liver labs. Patient was given instructions on symptomatic management, follow up instructions, and return precautions for the emergency department. Patient indicated understanding and was discharged in stable condition. Total time in ED observation: 2 hours 18 minutes
[2025-05-07 02:29] LABS: Basophils % 0.4 % (0.1-2.0); Eosinophils # 0.1 Kmm3 (0.0-0.4); Eosinophils % 1.8 % (0.1-12.0); Hemoglobin 16.7 g/dL (14.1-18.0); Immature Granulocytes # 0.03 10^3uL; Immature Granulocytes % 0.4 %; Lymphocytes # 1.3 K/mm3 (0.7-4.5); Lymphocytes % 16.2 % (10-50); Mean Corpuscular HGB Conc 33.4 g/dL (31.8-35.4); Mean Corpuscular Hemoglobin 34.9 pg (27.0-31.2); Mean Corpuscular Volume 104.6 fl (80-94); Mean Platelet Volume 9.5 fl (7.4-10.4); Monocytes # 0.5 K/mm3 (0.1-1.0); Monocytes % 5.7 % (1.7-9.3); Neutrophils % 75.5 % (37.0-80.0); Nucleated Red Blood Cells # 0 10^3/uL; Nucleated Red Blood Cells % 0 %; Platelet Count 220 K/mm3 (142-424); Red Blood Count 4.78 M/mm3 (4.60-6.20); Red Cell Distribution Width 13.3 % (11.5-17.5); Red Cell Distribution Width-SD 52.1 fL; White Blood Count 7.9 K/mm3 (4.8-10.8)
--- OUTSIDE RECORDS SUMMARY | 2025-05-07 02:32 | XMS_ITS | Encounter Summary ---
Author Organization [facility] [employer] Address [address] [place] [address] Care Team Providers Care System Validation Engineer Name Role Phone Ernie Bertrand MD Primary Care Provider [phone] Encounter Details Date Type Department Care Team (Late st Contact Info) Description 02/29/2024 Outside Orders [facility] Admitting [address] [place] [address] Michael Alva MD [address] [place] [address] Social History Tobacco Use Types Packs/Day Years Used Date Smoking Tobacco: Every Day Cigarettes Smokeless Tobacco: Never Alcohol Use Standard Drinks/Week Comments Not Currently 0 (1 standard drink = 0.6 oz pur e alcohol) social/caffeine use PRAPARE - Transportation Answer Date Re corded In the past 12 months, has l ack of transportation kept you from medical appointments or from getting medications? No 01/05/2024 Lack of Transportation (Non-Medical) Not on file 01/05/2024 Housing Stability Vital Sign Answer Bill e Recorded In the last 12 months, was t here a time when you were not able to pay the mortgage or rent on time? No 01/05/2024 In the last 12 months, how many places have you lived? 1 01/05/2024 In the last 12 months, was t here a time when you did not have a steady place to sleep or slept in a correction (including now)? No 01/05/2024 Interpersonal Safety Answer Date Record ed Family or friends hurt you Not on file 01/05 Family or friends insult you Not on file 04/2024 Family or friends threaten you Not on file 0 01/05/2024 Family or friends scream or curse at you Not on file 01/05/2024 Housing Stability Answer Date Recorded Living situation today Not on file Living situation problems Not on file 2023 Food Insecurity Answer Date Recorded Food run out past 12 months Not on file 04/2024 Food did not last past 12 months Not on file 01/05/2024 Employment Answer Date Recorded Help finding and keeping a job Not on file 0 01/05/2024 Family and Community Support Answer Bill e Recorded Help with Day to Day Activities Not on file 01/05/2024 Feeling Lonely or Isolated Not on file 01/05 Educational Attainment Answer Date Dustin rded Speak language other than [place] at home Not on file 01/05/2024 Want help with school or training Not on file 01/05/2024 Depression Answer Date Recorded PHQ-2 Risk Not on file 01/05/2024 Disabilities Answer Date Recorded Difficulty concentrating Not on file 024 Difficulty doing errands alone Not on file 0 01/05/2024 Substance Use Answer Date Recorded Used prescription meds for non-medical reasons N ot on file 01/05/2024 Used illegal drugs past 12 months Not on file 01/05/2024 Sex and Gender Information Value Date Recorded Sex Assigned at Not on file Legal Sex Male 3:13 PM SUSHI CHEF Gender Identity Not on file Sexual Orientation Not on file documented as of this encounter Plan of Treatment Upcoming Encounters Date Type Department Care Team (Late st Contact Info) Description 05/11/2025 9:00 AM EDT Office Visit [facility] Cardiology - [place] [address] [place] [address] Michael Alva MD [address] [facility] [address] [place] [address] documented as of this encounter Visit Diagnoses Not on filedocumented in this encounter Care Teams System Validation Engineer Relationship Specialty Start Date End Date Ernie Bertrand MD [address] [place] [address] [place] [address] PCP - General Adolescent Medicine 01/05/24 documented as of this encounter
--- OUTSIDE RECORDS SUMMARY | 2025-05-07 02:32 | XMS_ITS | Encounter Summary ---
Author Organization [employer] Address [address] [place] [address] Care Team Providers Care Investigative Research Specialist Name Role Phone Ernie Bertrand MD Primary Care Provider [phone] Reason for Referral * Ultrasound (Routine) - Closed Specialty Diagnoses / Procedures Referred By Contac t Referred To Contact Diagnoses Edema of left lower extremity Procedures US DOPPLER VENOUS LEG LEFT Ernie Bertrand MD [address] [facility] [address] [place] [address] Phone: tel: fax: Referral ID Status Reason Start Date Expiration Date Visits Re quested Visits Authorized [id number] Closed 04/20/2024 04/20/2025 1 1 Encounter Details Date Type Department Care Team (Late st Contact Info) Description 04/20/2024 Outside Orders [facility] Central Scheduling [address] [place] [address] Ernie Bertrand MD [address] [facility] [address] [place] [address] Edema of left lower extremity (Primary Dx) Social History Tobacco Use Types Packs/Day Years Used Date Smoking Tobacco: Every Day Cigarettes Smokeless Tobacco: Never Alcohol Use Standard Drinks/Week Comments Yes 0 (1 standard drink = 0.6 oz [...] place to sleep or slept in a skilled nursing (including now)? No 01/05/2024 Interpersonal Safety Answer [...] Date Dustin rded Speak language other than Maltese at home Not on file 01/05/2024 Want [...] on file Legal Sex Male 3:13 PM [employer] Gender Identity Not on file Sexual Orientation Not on file documented as of this encounter Plan of Treatment Upcoming Encounters Date Type Department Care Team (Late st Contact Info) Description 05/11/2025 9:00 AM EDT Office Visit [facility] Cardiology - [place] [address] [place] [address] Michael Alva MD [address] [facility] [address] [place] [address] documented as of this encounter Results * US DOPPLER VENOUS LEG LEFT (05/13/2024 2:41 PM EDT) Anatomical Region Laterality Modality Lower Extremity Ultrasound 05/13/2024 3:06 PM EDT Impressions 05/13/2024 3:07 PM EDT No evidence of left lower extremity deep venous thrombosis. Images reviewed, interpreted, and dictated by Dr. Jania Rogers. Transcribed by Thelma Cottrell PA-C. Narrative 05/13/2024 3:07 PM EDT LEFT LOWER EXTREMITY VENOUS DUPLEX DOPPLER EXAMINATION HISTORY: Left Lower extremity swelling. COMPARISON: None PROCEDURE: Multiple transverse and longitudinal scans were performed of the femoropopliteal deep venous system, with augmentation and compression maneuvers. FINDINGS: Proper phasic flow was noted in the visualized deep venous system. No intraluminal increased echogenicity is noted to suggest thrombus. There is proper compression and augmentation of the venous structures. No abnormal venous collaterals are seen. Procedure Note Leon Rogers MD - 05/13/2024 LEFT LOWER EXTREMITY VENOUS DUPLEX DOPPLER EXAMINATION HISTORY: Left Lower extremity swelling. COMPARISON: None PROCEDURE: Multiple transverse and longitudinal scans were performed of the femoropopliteal deep venous system, with augmentation and compression maneuvers. FINDINGS: Proper phasic flow was noted in the visualized deep venous system. No intraluminal increased echogenicity is noted to suggest thrombus. There is proper compression and augmentation of the venous structures. No abnormal venous collaterals are seen. IMPRESSION: No evidence of left lower extremity deep venous thrombosis. Images reviewed, interpreted, and dictated by Dr. Jania Rogers. Transcribed by Thelma Cottrell PA-C. us Ernie Bertrand MD CV VASCULAR ORDERABLES Final Result documented in this encounter Visit Diagnoses Diagnosis Edema of left lower extremity- Primary Edema of left lower extremity documented in this encounter Care Teams Investigative Research Specialist Relationship Specialty Start Date End Date Ernie Bertrand MD [address] [place] [address] PCP - General Adolescent Medicine 01/05/24 documented as of this encounter
--- OUTSIDE RECORDS SUMMARY | 2025-05-07 02:32 | XMS_ITS | Clinical Summary ---
Author Organization [employer] Address [address] [place] [address] Care Team Providers Care Information Technology Instructor Name Role Phone Ernie Bertrand MD Primary Care Provider [phone] Allergies No known active allergies Medications atorvastatin (LIPITOR) 20 MG tablet Take 1 tablet (20 mg total) by mouth daily. Active rivaroxaban (XARELTO) 20 mg tablet Take 1 tablet (20 mg total) by mouth daily with dinner. Active Breztri Aerosphere 160-9-4.8 mcg/actuation HFAA SMARTSIG:Via Inhaler 4 Active guaiFENesin (Mucinex) 600 mg 12 hr tabletIndicatio ns:CHF with unknown LVEF (HCC) Take 1 tablet (600 mg total) by mouth 2 (two) times daily Look-alike/Betty nd-alike medication. 60 tablet 5 4 Active magnesium oxide (MAG-OX) 400 mg (241.3 mg magnesium) tablet Take 1 tablet (400 mg total) by mouth daily. Active empagliflozin (Jardiance) 10 mg tablet Take 1 tablet (10 mg total) by mouth daily. Active nicotine (NICODERM CQ) 7 mg/24 hr patchIndication s:Other emphysema (HCC) Place 1 patch onto the skin daily. 14 patch 4 Active Additional Information Patient not taking.Reported on 09/21/2024 gabapentin (NEURONTIN) 300 MG capsule Take 1 capsule (300 mg total) by mouth 2 (two) times daily. 4 Active Active Problems Problem Noted Date Diagnosed Date DANII (acute kidney injury) 07/15/2024 Pleural effusion 02/02/2024 Atelectasis 02/02/2024 Other emphysema 02/02/2024 Pulmonary embolism 02/02/2024 Cigarette smoker 02/02/2024 Shortness of breath 02/02/2024 CHF with unknown LVEF 01/05/2024 Asthma Type 2 myocardial infarction due to heart failur e Acute renal failure (ARF) Social History Tobacco Use Types Packs/Day Years Used Date Smoking Tobacco: Every Day Cigarettes Smokeless Tobacco: Never Tobacco Cessation:Ready to Q uit: Not Asked; Counseling Given: Not Answered Alcohol Use Standard Drinks/Week Comments Not Currently [...] place to sleep or slept in a prison (including now)? No 01/05/2024 Utilities Answer Date Recorded In the past 12 months, has t he electric, gas, oil, or water company threatened to shut off services in your home? No 07/15/2024 Interpersonal Safety Answer Date Record ed How often does anyone, [employer] family and friends, physically hurt you? Never 07/15/2024 How often does anyone, [employer] family and friends, insult or talk down to you? Never 07/15/2024 How often does anyone, [employer] family and friends, threaten you with harm? Never 07/15/2024 How often does anyone, [employer] family and friends, scream or curse at you? Never 07/15/2024 Housing Stability Answer Date Recorded What is your living situation today? I have a [facility] place to live 07/15/[address] you li ve. Do you have problems with any of the following? None of the above 07/15/2024 Food Insecurity Answer Date Recorded Within the past 12 months, y ou worried that your food would run out before you got money to buy more. Never true 07/15/2024 Within the past 12 months, t he food you bought just didn't last and you didn't have money to get more. Never true 07/15/2024 Transportation Needs Answer Date Record ed In the past 12 months, has l ack of reliable transportation kept you from medical appointments, meetings, work or from getting things needed for daily living? No 07/15/2024 Financial Resource Strain Answer Date R ecorded How hard is it for you to pa y for the very basics like food, housing, medical care, and heating? Would you say it is: Not hard at all 07/15/2024 Employment Answer Date Recorded Do you want help finding or keeping work or a job? I do not need or want help 07/15/2024 Family and Community Support Answer Bill e Recorded If for any reason you need h elp with day-to-day activities such as bathing, preparing meals, shopping, managing finances, etc., do you get the help you need? I don't need any help 07/15/2024 Feeling Lonely or Isolated 0 07/15 Educational Attainment Answer Date Dustin rded Do you speak a language other than Bengali at [facility]? No 07/15/2024 Do you want help with school or training? For example, starting or completing job training or getting a high school diploma, GED or equivalent. No 07/15/2024 Physical Activity Answer Date Recorded Number of minutes of exercise per week 0 07/15/2024 Alcohol Use Answer Date Recorded 5 or More Drinks Per Day Past 12 Months 0 10/08/2024 Depression Answer Date Recorded Calculation of above two rows 0 Stress Answer Date Recorded Stress means a situation in which a person feels tense, restless, nervous, or anxious, or is unable to sleep at night because his or her mind is troubled all the time. Do you feel this kind of stress these days? Not at all 07/15/2024 Disabilities Answer Date Recorded Because of a physical, menta l, or emotional condition, do you have serious difficulty concentrating, remembering, or making decisions? (5 years or older) No 07/15/2024 Because of a physical, menta l, or emotional condition, do you have difficulty doing errands alone such as visiting a doctor's office or shopping? (15 years or older) Yes 07/15/2024 Substance Use Answer Date Recorded How many times in the past y ear have you used prescription drugs for non-medical reasons? Never 07/15/2024 How many times in the past year have you used [place] legal drugs? 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 Gender Identity Not on file Sexual Orientation Not on file Last Filed Vital Signs Vital Sign Reading Time Taken Comments Blood Pressure 130/80 09/21/2024 11:32 AM EDT Pulse 79 09/21/2024 11:32 AM EDT Temperature 36.7 C (98 F) 07/16/2024 7:21 AM EDT Respiratory Rate 20 09/21/2024 11:32 AM EDT Oxygen Saturation 92% 09/21/2024 11:32 AM EDT Inhaled Oxygen Concentration 28% 07/16/2024 7 :18 AM EDT Weight 89.4 kg (197 lb) 09/21/2024 11:32 AM EDT Height 170.2 cm (5' 7 ) 09/21/2024 11:32 AM EDT Body Mass Index 30.85 09/21/2024 11:32 AM EDT Plan of Treatment Upcoming Encounters Date Type Department Care Team (Late st Contact Info) Description 05/11/2025 9:00 AM EDT Office Visit [facility] Cardiology - [place] [address] [place] [address] Michael Alva MD [address] [facility] [address] [place] [address] Health Maintenance Due Date Last Done Comments CT Colonography 1965 Colonoscopy 1965 Colorectal Cancer Screening 1965 FOBT/FIT 1965 Fit-DNA (Cologuard) 1965 Sigmoidoscopy 1965 Depression Screening (12+) 1977 HIV Screening 1980 Hepatitis C Screening 1983 DTAP/TDAP/TD VACCINES (1 - Tdap) 1984 Pneumococcal 50+ years (1 of 2 - PCV) 1984 Shingles Vaccine (Zoster) (1 of 2) 2015 COVID-19 VACCINE (1 - 2023- season) 2024 Tobacco Cessation Counseling and Screening (12+) 07/2107/21/2024 Influenza Vaccine (Season Ended) 2025 Lipid Panel 01/07/2027 01/07/2024 Procedures Procedure Name Priority Date/Time Associated Diagnosis Comments LIPID PANEL Routine 01/07/2024 3:09 AM EST from Last 3 Months or Most Recently Relevant to Health Maintenance Results * (ABNORMAL) Lipid panel (01/07/2024 3:09 AM EST) Triglycerides 91 0 - 249 mg/dL 01/07/2024 4:04 AM [facility] Cholesterol 116 0 - 199 mg/dL 01/07/2024 4:04 AM [facility] Comment: 200 to 239 mg/dL = Moderate (borderline) >239 mg/dL = High HDL Cholesterol 24(L) >=40 mg/dL 01/07/2024 4:04 AM [facility] Comment: >=60 mg/dL = Desirable <40 mg/dL = Increased Risk All other components are listed individually or are calculations VLDL Cholesterol 18.2 5 - 40 mg/dL 01/07/2024 4:04 AM [facility] Cholesterol/HDL ratio 4.8(H) 0.0 - 3.2 01/07/2024 4:04 AM [facility] LDl/HDL Ratio 3 0 - 4 01/07/2024 4:04 AM [facility] RISK COMP 5 01/07/2024 4:04 AM [facility] LDL Cholesterol, Calculated 74 0 - 99 mg/dL 01/07/2024 4:04 AM [facility] Blood Venipuncture / Unknown 01/07/2024 3:09 AM EST 01/07/2024 3:24 AM EST us Jenise Vides PA-C LAB BLOOD ORDERABLES Final R esult [facility] [address] [place] [address], [facility] [phone] from Last 3 Months or Most Recently Relevant to Health Maintenance Advance Directives For more information, please contact: [phone] Documents on File Type Date Recorded Patient Dip Guider Stoves Expl anation Advance Directives and Livin g Will 03/14/2024 1:43 PM * Full Code (Latest Code Status on File) Date Activated Date Inactivated Comments 07/14/2024 11:29 PM 07/16/2024 11:21 AM * Full Code Date Activated Date Inactivated Comments 01/08/2024 3:56 PM 01/15/2024 4:52 PM * Full Code Date Activated Date Inactivated Comments 01/05/2024 8:34 PM 01/08/2024 3:56 PM -Attempt Resu scitation if person has no pulse and is not breathing. -If no pulse or not breathing attempt CPR/CODE. -Call Rapid Response if patient is in distress. Care Teams Information Technology Instructor Relationship Specialty Start Date End Date Ernie Bertrand MD [address] [place] [address] [place] [address] PCP - General Adolescent Medicine 01/05/24
--- OUTSIDE RECORDS SUMMARY | 2025-05-07 02:32 | XMS_ITS | Referral Summary ---
Author Organization [employer] Address [address] [place] [address] Care Team Providers Care Electronic Development Technician Name Role Phone Ernie Bertrand MD Primary Care Provider [phone] Allergies No known active allergies Medications atorvastatin [...] place to sleep or slept in a care home (including now)? No 01/05/2024 Utilities Answer Date [...] Do you speak a language other than Thai at [facility]? 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 Gender Identity Not on file Sexual Orientation [...] Description 05/11/2025 9:00 AM EDT Office Visit [facility] Cardiology - [place] [address] [place] [address] Michael Alva MD [address] [facility] [address] [place] [address] Procedures Procedure Name Priority Date/Time Associated Diagnosis Comments LIPID PANEL Routine 01/07/2024 3:09 AM EST from Last 3 Months or Most Recently Relevant to Health Maintenance Results * (ABNORMAL) Lipid panel (01/07/2024 3:09 AM EST) Triglycerides 91 0 - 249 mg/dL 01/07/2024 4:04 AM [facility] Cholesterol 116 0 - 199 mg/dL 01/07/2024 4:04 AM [facility] Comment: 200 to 239 mg/dL = Moderate (borderline) >239 mg/dL = High HDL Cholesterol 24(L) >=40 mg/dL 01/07/2024 4:04 AM [facility] Comment: >=60 mg/dL = Desirable <40 mg/dL = Increased Risk All other components are listed individually or are calculations VLDL Cholesterol 18.2 5 - 40 mg/dL 01/07/2024 4:04 AM [facility] Cholesterol/HDL ratio 4.8(H) 0.0 - 3.2 01/07/2024 4:04 AM [facility] LDl/HDL Ratio 3 0 - 4 01/07/2024 4:04 AM [facility] RISK COMP 5 01/07/2024 4:04 AM [facility] LDL Cholesterol, Calculated 74 0 - 99 mg/dL 01/07/2024 4:04 AM [facility] Blood Venipuncture / Unknown 01/07/2024 3:09 AM EST 01/07/2024 3:24 AM EST us Jenise Vides PA-C LAB BLOOD ORDERABLES Final R esult [facility] [address] [phone] from Last 3 Months or Most Recently Relevant to Health Maintenance Advance Directives For more information, please contact: [phone] Documents on File Type Date Recorded Patient Gluer And Slicer Hand Expl anation Advance Directives and Livin g Will 03/14/2024 1:43 PM * Full Code (Latest Code Status on File) Date Activated Date Inactivated Comments 07/14/2024 11:29 PM 07/16/2024 11:21 AM * Full Code Date Activated Date Inactivated Comments 01/08/2024 3:56 PM 01/15/2024 4:52 PM * Full Code Date Activated Date Inactivated Comments 01/05/2024 8:34 PM 01/08/2024 3:56 PM -Attempt Resus citation if person has no pulse and is not breathing. -If no pulse or not breathing attempt CPR/CODE. -Call Rapid Response if patient is in distress. Care Teams Electronic Development Technician Relationship Specialty Start Date End Date Ernie Bertrand MD [address] [place] [address] PCP - General Adolescent Medicine 01/05/24
--- OUTSIDE RECORDS SUMMARY | 2025-05-07 02:32 | XMS_ITS | Encounter Summary ---
Author Organization [employer] Address [address] [place] [address] Care Team Providers Care Independent Living Specialist Name Role Phone Ernie Bertrand MD Primary Care Provider [phone] Reason for Visit * Reason Onset Date Comments Echo 06/13/2024 Encounter Details Date Type Department Care Team (Late st Contact Info) Description 06/13/2024 Telephone [facility] Cardiology [address] [address] Michael Gutierres DO [address] [place] [address] Echo Social History Tobacco Use Types Packs/Day Years [...] place to sleep or slept in a half-way (including now)? 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 * Telephone Encounter - Michelinelucinda Leon - 06/13/2024 2:59 PM EDT Next Visit: Visit date not found Last Visit: Visit date not found Caller Message: Patient called in regards to ECHO he was sheduled for on 06/13/2024. Per him and his primary cardiac provider he already had an echo and they are unsure why the appointment remained with [place] [facility]. Is follow up action needed? No Explain: Just FYI Caller Name: Emmett Relation to patient: Self Best Call Back OK to leave message on voicemail: N/A documented in this encounter Plan of Treatment Upcoming Encounters Date Type Department Care Team (Late st Contact Info) Description 05/11/2025 9:00 AM EDT Office Visit [facility] Cardiology - [place] [address] [place] [address] Michael Alva MD [address] [place] [address] documented as of this encounter Visit Diagnoses Not on filedocumented in this encounter Care Teams Independent Living Specialist Relationship Specialty Start Date End Date Ernie Bertrand MD [address] [place] [address] PCP - General Adolescent Medicine 01/05/24 documented as of this encounter
[2025-05-07 02:33] LABS: Alanine Aminotransferase 57 U/L (12-78); Alkaline Phosphatase 164 U/L (38-126); Aspartate Amino Transferase 128 U/L (17-59); Bilirubin,Total 1.8 mg/dl (0.2-1.3); Blood Urea Nitrogen 10 mg/dl (9-20); Calcium 9.2 mg/dl (8.4-10.2); Carbon Dioxide 33 mmol/L (22.0-30.0); Chloride 102 mmol/L (98-107); Creatinine Clearance Estimated 102 mL/min (50-200); Estimated Glomerular Filt Rate 86 ml/min (>60); GFR (African American) 105 ML/MIN (>60); Glucose 166 mg/dl (74-100); Lipase 49 U/L (23-300); Sodium 138 mmol/L (136-145)
[2025-05-07 02:36] LABS: INR 1.13 (0.9-1.1); Prothrombin Time 12.4 seconds (10.1-12.5)
[2025-05-07 02:45] LABS: NT Pro Brain Natriuretic Pep. 88.1 pg/mL (0-125); Troponin I < 0.01 ng/ml (0.00-0.034)
[2025-05-07 02:51] LABS: D-Dimer 0.49 ug/mL (0.0-0.5)
--- NOTE | 2025-05-07 04:50 | PC.NURSE ---
2nd trop drawn and sent to the lab at this time
[2025-05-07 05:24] LABS: Troponin I < 0.01 ng/ml (0.00-0.034)
== END 2025-05-07 05:49 | disposition home or self-care (01) ==
PROVIDERS: Emergency Provider Emergency Medicine; PCP Internal Medicine Adolescent Medicine
DX: R07.9 Chest pain, unspecified (principal); I44.7 Left bundle-branch block, unspecified; R74.01 Elevation of levels of liver transaminase levels; F17.210 Nicotine dependence, cigarettes, uncomplicated
CPT/HCPCS: 71045; 80053; 83690; 83880; 84484; 85025; 85378; 85610; 93005; 99285

== ENCOUNTER 2025-05-08 02:37 | Inpatient (IN) | payer OTHER, SELFPAY ==
[2025-05-08] VITALS (7 sets, daily range): BP systolic 95–148; BP diastolic 55–86; PULSE 65–89; RESP 16–20; TEMP 36.5–36.8; O2SAT 89–95; BMI 29.6; BMI 29.2
--- NOTE | 2025-05-08 02:49 | ECG_ITS ---
APPROVED REPORT Exam: Resting ECG HR:89 bpm ECG Measurements Heart Rate 89 AXES DC 193 P 70 QRSd 162 QRS 179 QT 390 T 81 QTc 437 Conclusion SINUS RHYTHM LEFT BUNDLE BRANCH BLOCK [120+ ms QRS DURATION, 80+ ms Q/S IN V1/V2, 85+ ms R IN I/aVL/V5/V6] LATERAL MYOCARDIAL INFARCTION , OF INDETERMINATE AGE [40+ ms Q WAVE AND/OR ST/T ABNORMALITY IN I/aVL/V5/V6] ABNORMAL ECG UNCONFIRMED REPORT Electronically signed by : DANIEL ARTIS, 05/08/2025 06:40:07
[2025-05-08 02:56] LABS: Basophils % 0.4 % (0.1-2.0); Eosinophils # 0.2 Kmm3 (0.0-0.4); Eosinophils % 3.3 % (0.1-12.0); Hematocrit 50.9 % (42.0-52.0); Hemoglobin 16.7 g/dL (14.1-18.0); Immature Granulocytes # 0.02 10^3uL; Immature Granulocytes % 0.3 %; Lymphocytes # 1.9 K/mm3 (0.7-4.5); Lymphocytes % 27.1 % (10-50); Mean Corpuscular HGB Conc 32.8 g/dL (31.8-35.4); Mean Corpuscular Volume 103.7 fl (80-94); Mean Platelet Volume 9.7 fl (7.4-10.4); Monocytes # 0.5 K/mm3 (0.1-1.0); Monocytes % 7.7 % (1.7-9.3); Neutrophils # 4.3 K/mm3 (1.8-7.8); Neutrophils % 61.2 % (37.0-80.0); Nucleated Red Blood Cells # 0 10^3/uL; Nucleated Red Blood Cells % 0 %; Platelet Count 250 K/mm3 (142-424); Red Blood Count 4.91 M/mm3 (4.60-6.20); Red Cell Distribution Width 13.7 % (11.5-17.5); Red Cell Distribution Width-SD 52.7 fL
--- NOTE | 2025-05-08 03:00 | HMH.EDGENADL ---
Discharge Plan Disposition Patient Disposition: Admitted Prescriptions Prescriptions: No Action atorvastatin 20 mg tablet 20 mg PO DAILY Xarelto 20 mg tablet 20 mg PO DAILY Jardiance 25 mg tablet 25 mg PO DAILY Clinical Impressions Clinical Impression: Cholecystitis, acute with cholelithiasis Qualifiers: Biliary obstruction: with biliary obstruction Qualified Code(s): K80.01 - Calculus of gallbladder with acute cholecystitis with obstruction Instructions Patient Instructions: DI for Acute Abdominal Pain Print Language Print Language: Burundian Discharge ED Provider: Erasto Aguirre General Adult HPI General Chief complaint: Abdominal Pain Stated complaint: severe right side pain Time Seen by Provider: 05/08/25 02:48 Mode of Arrival: Ambulatory Source of Information: Patient Description of Symptoms (Recalled from ER Triage Doc. by RN): Pt states he was here last night with similiar pain, he is complaining of 10/10 pain in his right upper quad/ribs. Denies any chest pain but states it hurts to take a deep breath. Denies any nausea or vomiting. Last PO intake was at noon. History of Present Illness HPI narrative: 59-year-old male with reported history of heart failure presents for right-sided abdominal pain. He reports that he had similar pain last night but it was located in his chest. He was seen here for chest pain and was evaluated with no significant abnormalities noted. He did not get any imaging of the abdomen at that time. He reports his pain has worsened, migrated to the right side. He reports feeling like he has a dry mouth. He did not take anything for pain prior to arrival. He is on Xarelto but he was unsure why. Reports no history of abdominal surgery. Related Data Home Medications ?Medication ?Instructions ?Recorded ?Confirmed atorvastatin 20 mg tablet 20 mg PO DAILY 05/08/25 05/08/25 empagliflozin 25 mg tablet 25 mg PO DAILY 05/08/25 05/08/25 (Jardiance) rivaroxaban 20 mg tablet (Xarelto) 20 mg PO DAILY 05/08/25 05/08/25 Allergies Allergy/AdvReac Type Severity Reaction Status Date / Time No Known Allergies Allergy Verified 05/07/25 02:44 [facility] Disclaimer: The information contained in this section may have been updated after the patient was seen, as this information can be updated by other users. Medical History (Updated 05/08/25 @ 03:18 by Erasto Aguirre MD) Hyperlipidemia Diabetes mellitus, type 2 Congestive heart failure Social History (Updated 05/07/25 @ 05:33 by Jayesh Lynn MD) Smoking Status: Current every day smoker alcohol intake: never current occupational status: other Travel in the last 8 weeks?: None Have you lived/traveled outside US in past 30 days?: No Contact w/someone who lives/traveled outside US past 30 days?: No Exposure to someone with infectious disease in past 14 days?: No Do you have a fever (greater than 100.4 F or 38 C)?: No Have you tested positive for COVID-19?: No Exposed to someone with COVID-19 in past 14 days?: No Do you have a sore throat?: No Do you have a cough?: No Do you have any weakness?: No Do you have any diarrhea?: No Are you experiencing any unusual bleeding?: No Do you have any muscle aches/pain?: No Do you have any abdominal pain?: No Are you experiencing loss of taste or smell?: No ROS Obtained: Yes All systems reviewed & no additional complaints except as documented Physical Exam General General appearance: alert and in no apparent distress Head Head exam: atraumatic and normocephalic Eye Eye exam: Present normal appearance, PERRL and EOMI ENT ENT exam: Present normal oropharynx and normal external ear exam Neck Neck exam: Present normal inspection and full ROM Chest Chest inspection: Present normal inspection and symmetric chest wall rise; Absent tenderness Respiratory Respiratory exam: Present normal lung sounds bilaterally; Absent respiratory distress Cardiovascular Cardiovascular exam: Present regular rate and normal rhythm Abdominal Exam Abdominal exam: Present soft and tenderness (Right upper quadrant); Absent distention or guarding Extremities Exam Extremities exam: Present normal inspection; Absent edema or joint swelling Back Exam Back exam: Present normal inspection; Absent tenderness Neurological Exam Neurological exam: Present alert and oriented X3; Absent motor sensory deficit Psychiatric Psychiatric exam: Present normal affect and normal mood Skin Skin exam: Present warm, dry and normal color Lymphatic Lymphatic Findings: no adenopathy Medical Decision Making Medical Records Medical records reviewed: Yes I reviewed the patient's medical records. Screening: Per USPSTF and CDC recommendations, given the prevalence of disease in our region, it is our hospital?s policy to screen for HIV and viral Hepatitis for all patients aged 18 and over and those with ongoing risk factors. Miky Inquiry Pt receiving controlled substance: No Miky was queried for this patient: No Vital Signs: 05/08/25 02:48 Temperature 98.1 F Temperature Source Oral Pulse Rate [Left] 89 Respiratory Rate 20 Blood Pressure [Right Arm] 148/86 H Blood Pressure Mean [Right Arm] 106 Blood Pressure Source [Right Arm] Automatic Cuff Blood Pressure Position [Right Arm] Sitting 02 Sat by Pulse Oximetry 94 L Oxygen Delivery Method Room Air Lab Data Lab results reviewed: Yes I reviewed the patient's lab results. Lab Results 05/08/25 02:48: WBC 7.0, RBC 4.91, Hgb 16.7, Hct 50.9, MCV 103.7 H, MCH 34.0 H, MCHC 32.8, RDW 13.7, Plt Count 250, MPV 9.7, Neut % (Auto) 61.2, Lymph % (Auto) 27.1, [place] % (Auto) 7.7, Eos % (Auto) 3.3, Baso % (Auto) 0.4, Neut # (Auto) 4.3, Lymph # (Auto) 1.9, [place] # (Auto) 0.5, Eos # (Auto) 0.2, Baso # (Auto) 0.0, Sodium 140, Potassium 3.9, Chloride 103, Carbon Dioxide 31 H, Anion Gap 9.9, BUN 7 L D, Creatinine 1.00, Estimated Creat Clear 96, Estimated GFR 76, Est GFR ( Amer) 93, Glucose 147 H, Calcium 9.2, Total Bilirubin 3.3 H, AST 107 H, ALT 99 H D, Alkaline Phosphatase 195 H, Total Protein 8.0, Albumin 4.2, Globulin 3.8 H, Albumin/Globulin Ratio 1.1, Lipase 63 05/08/25 02:48 05/08/25 02:48 Orders (Tests/Meds): ED MEDICATIONS Generic Name Dose Route Start Last Admin Trade Name Freq PRN Reason Stop Dose Admin Piperacillin Sod/Tazobactam 100 mls @ 200 mls/hr 05/08/25 03:00 05/08/25 03:08 Sod 4.5 gm/ Sodium Chloride IV 05/18/25 02:59 200 mls/hr Q6H LUCILA Administration Lactated Ringer's 1,000 mls @ 999 mls/hr 05/08/25 03:00 05/08/25 03:07 Lactated Ringer's 1000 Ml Bag IV 05/08/25 04:00 999 mls/hr .Q1H1M LUCILA Administration Discontinued Medications Generic Name Dose Route Start Last Admin Trade Name Leonard PRN Reason Stop Dose Admin Acetaminophen 1,000 mg 05/08/25 02:59 05/08/25 03:07 Acetaminophen 500mg Tab PO 05/08/25 03:00 1,000 mg ONCE ONE Administration Morphine Sulfate 4 mg 05/08/25 02:59 05/08/25 03:07 Morphine 4mg/Ml Syringe IV 05/08/25 03:00 4 mg ONCE ONE Administration Ondansetron HCl 4 mg 05/08/25 02:59 05/08/25 03:07 Ondansetron 4mg/2ml Vial IV 05/08/25 03:00 4 mg ONCE ONE Administration ORDERS Category Date Time Status POCUS Point of Care (ER Only) Stat Exams 05/08/25 02:48 Ordered CBC w/Auto Diff [Complete Blood Count Auto Diff] Stat Lab 05/08/25 02:48 Completed CMP [Comprehensive Metabolic Panel] Stat Lab 05/08/25 02:48 Completed HIV Combo Stat Lab 05/08/25 02:48 Received Hepatitis C Ab Qual. W/ RFX Stat Lab 05/08/25 02:48 Received INR [Prothrombin Time INR] Stat Lab 05/08/25 02:40 Received Lipase Stat Lab 05/08/25 02:48 Completed PTT [Activated Partial Thrombo Time] Stat Lab 05/08/25 02:40 Received EKG Request [ECG Request] Stat Y 05/08/25 02:49 Ordered Medical Decision Narrative: 59-year-old male presents for right upper quadrant abdominal pain. History was obtained via interactive discussion with patient, chart review. He was seen here last night for chest pain which has now migrated to the right upper quadrant. On arrival, patient is [afebrile, hemodynamically stable, satting appropriately, alert, oriented x4, GCS 15], moving all extremities spontaneously. Full physical exam performed and significant for right upper quadrant tenderness Differential includes but is not limited to cholecystitis, choledocholithiasis, ascending cholangitis gastroenteritis. [id number] bedside ultrasound was performed and findings are consistent with cholecystitis. Patient has stones and sludge within the gallbladder, gallbladder wall thickening, gallbladder dilated. Common bile duct was not able to be visualized. Patient was given morphine, Zofran, Tylenol, 1 L fluid bolus, Zosyn for symptomatic management and correction of underlying abnormalities. Workup initiated including CBC CMP lipase PT/INR PTT. On re-evaluation, patient [remains afebrile, HD stable.] Laboratory workup independently interpreted by me and significant for bilirubin 3.3, increased from 1.8. Alk phos also increased from yesterday. Other LFTs stable. No leukocytosis. Formal ultrasound is unable to be obtained due to the time of night. CT abdomen and pelvis was considered but deemed unlikely to provide any additional information at this time. Given patient history, exam and workup, patient's presentation most likely represents acute calculus cholecystitis with possible biliary obstruction. Interactive discussion was had with hospitalist on-call for admission.. Procedures Risk/Benefits of Procedure(s) Were Explained: Yes Limited Ultrasound Indication:: Limited RUQ ultrasound Indication: Right upper quadrant abdominal pain Identified structures: -Gallbladder -Gallbladder wall -Liver Findings: Sonographic Jovel sign: Present Gallstones: Present Sludge: Present Pericholecystic fluid: Abs Maximal GB wall thickness (mm): [normal is </= 3mm] 4mm Common bile duct width (mm): [normal is </= 6mm] Unable to visualize Gallbladder width (cm): [normal is < 4cm] 5 cm Gallbladder length (cm): [normal is < 10cm] >12cm Impression: acute cholecystitis with cholelithiasis Images were saved to permanent archive The study was technically adequate CPT 01740-90 This study was performed by me, and I personally interpreted all images/videos. Critical Care Critical Care Time Critical Care Time: No
--- OUTSIDE RECORDS SUMMARY | 2025-05-08 03:05 | XMS_ITS | Encounter Summary ---
Author Organization [employer] Address [address] [place] [address] Care Team Providers Care Mine Wedge Sawyer Name Role Phone Ernie Bertrand MD Primary Care Provider [phone] Reason for Visit * Reason Onset Date Comments Echo 06/13/2024 Encounter Details Date Type Department Care Team (Late st Contact Info) Description 06/13/2024 Telephone [facility] Cardiology [address] [address] Michael Gutierres DO [address] [place] [address] Echo Social History Tobacco Use [...] Date Dustin rded Speak language other than Khmer at home Not on file 01/05/2024 Want [...] on file 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 * Telephone Encounter - Michelinelucinda Leon - 06/13/2024 2:59 PM EDT Next Visit: Visit date not found Last Visit: Visit date not found Caller Message: Patient called in regards to ECHO he was sheduled for on 06/13/2024. Per him and his primary cardiac provider he already had an echo and they are unsure why the appointment remained with [place] [facility]. Is follow up action needed? No Explain: Just FYI Caller Name: Emmett Relation to patient: Self Best Call Back OK to leave message on voicemail: N/A documented in this encounter Plan of Treatment Upcoming Encounters Date Type Department Care Team (Late st Contact Info) Description 05/11/2025 9:00 AM EDT Office Visit [facility] Cardiology - [place] [address] [place] [address] Michael Alva MD [address] [place] [address] documented as of this encounter Visit Diagnoses Not on filedocumented in this encounter Care Teams Mine Wedge Sawyer Relationship Specialty Start Date End Date Ernie Bertrand MD [address] [place] [address] [place] [address] PCP - General Adolescent Medicine 01/05/24 documented as of this encounter
--- OUTSIDE RECORDS SUMMARY | 2025-05-08 03:05 | XMS_ITS | Encounter Summary ---
Author Organization [employer] Address [address] [place] [address] Care Team Providers Care Digital Solutions Architect Name Role Phone Ernie Bertrand MD Primary Care Provider [phone] Reason for Referral * Ultrasound (Routine) - Closed Specialty Diagnoses / Procedures Referred By Contac t Referred To Contact Diagnoses Edema of left lower extremity Procedures US DOPPLER VENOUS LEG LEFT Ernie Bertrand MD [address] [facility] [address] [place] [address] Phone: tel: fax: Referral ID Status Reason Start Date Expiration Date Visits Re quested Visits Authorized [id number] Closed 04/20/2024 04/20/2025 1 1 Encounter Details Date Type Department Care Team (Late st Contact Info) Description 04/20/2024 Outside Orders [facility] Central Scheduling [address] [place] [address] Ernie Bertrand MD [address] [facility] [address] [place] [address] Edema of left lower extremity (Primary Dx) [...] Date Dustin rded Speak language other than Tajik at home Not on file 01/05/2024 Want [...] on file 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 Gender Identity Not on file Sexual Orientation Not on file documented as of this encounter Plan of Treatment Upcoming Encounters Date Type Department Care Team (Late st Contact Info) Description 05/11/2025 9:00 AM EDT Office Visit [facility] Cardiology - [place] [address] [place] [address] Michael Alva MD [address] [facility] [address] [place] [address] documented as of this encounter Results * [...] extremity documented in this encounter Care Teams Digital Solutions Architect Relationship Specialty Start Date End Date Ernie Bertrand MD [address] [place] [address] PCP - General Adolescent Medicine 01/05/24 documented as of this encounter
--- OUTSIDE RECORDS SUMMARY | 2025-05-08 03:05 | XMS_ITS | Clinical Summary ---
Author Organization [employer] Address [address] [place] [address] Care Team Providers Care New Car Make Ready Mechanic Name Role Phone Ernie Bertrand MD Primary Care Provider [phone] Allergies No known active allergies Medications atorvastatin [...] place to sleep or slept in a group home (including now)? No 01/05/2024 Utilities Answer [...] Do you speak a language other than Amharic at [facility]? 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 Gender Identity Not on file Sexual Orientation [...] 05/11/2025 9:00 AM EDT Office Visit [facility] Cardiology - [place] [address] [place] [address] Michael Alva MD [address] [facility] [address] [place] [address] Health Maintenance Due Date Last Done Comments [...] 0 - 249 mg/dL 01/07/2024 4:04 AM [facility] Cholesterol 116 0 - 199 mg/dL 01/07/2024 4:04 AM [facility] Comment: 200 to 239 mg/dL = Moderate (borderline) >239 mg/dL = High HDL Cholesterol 24(L) >=40 mg/dL 01/07/2024 4:04 AM [facility] Comment: >=60 mg/dL = Desirable <40 mg/dL = Increased Risk All other components are listed individually or are calculations VLDL Cholesterol 18.2 5 - 40 mg/dL 01/07/2024 4:04 AM [facility] Cholesterol/HDL ratio 4.8(H) 0.0 - 3.2 01/07/2024 4:04 AM [facility] LDl/HDL Ratio 3 0 - 4 01/07/2024 4:04 AM [facility] RISK COMP 5 01/07/2024 4:04 AM [facility] LDL Cholesterol, Calculated 74 0 - 99 mg/dL 01/07/2024 4:04 AM [facility] Blood Venipuncture / Unknown 01/07/2024 3:09 AM EST 01/07/2024 3:24 AM EST us Jenise Vides PA-C LAB BLOOD ORDERABLES Final R esult [facility] [address] [place] [address], [facility] [phone] from Last 3 Months or Most Recently Relevant to Health Maintenance Advance Directives For more information, please contact: [phone] Documents on File Type Date Recorded Patient Clinical Nurse Manager Expl anation Advance Directives and Livin g [...] if patient is in distress. Care Teams New Car Make Ready Mechanic Relationship Specialty Start Date End Date Ernie Bertrand MD [address] [place] [address] PCP - General Adolescent Medicine 01/05/24
--- OUTSIDE RECORDS SUMMARY | 2025-05-08 03:05 | XMS_ITS | Referral Summary ---
Author Organization [employer] Address [address] [place] [address] Care Team Providers Care Blow Machine Tender Starch Spraying Name Role Phone Ernie Bertrand MD Primary Care Provider [phone] Allergies No known active allergies Medications atorvastatin [...] place to sleep or slept in a [facility] (including now)? No 01/05/2024 Utilities Answer Date [...] Do you speak a language other than Kazakh at [facility]? 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 Gender Identity Not on file Sexual [...] Description 05/11/2025 9:00 AM EDT Office Visit [facility] Cardiology - [place] [address] [place] [address] Michael Alva MD [address] [facility] [address] [place] [address] Procedures Procedure Name Priority Date/Time Associated Diagnosis Comments LIPID PANEL Routine 01/07/2024 3:09 AM EST from Last 3 Months or Most Recently Relevant to Health Maintenance Results * (ABNORMAL) Lipid panel (01/07/2024 3:09 AM EST) Triglycerides 91 0 - 249 mg/dL 01/07/2024 4:04 AM [facility] Cholesterol 116 0 - 199 mg/dL 01/07/2024 4:04 AM [facility] Comment: 200 to 239 mg/dL = Moderate (borderline) >239 mg/dL = High HDL Cholesterol 24(L) >=40 mg/dL 01/07/2024 4:04 AM [facility] Comment: >=60 mg/dL = Desirable <40 mg/dL = Increased Risk All other components are listed individually or are calculations VLDL Cholesterol 18.2 5 - 40 mg/dL 01/07/2024 4:04 AM [facility] Cholesterol/HDL ratio 4.8(H) 0.0 - 3.2 01/07/2024 4:04 AM [facility] LDl/HDL Ratio 3 0 - 4 01/07/2024 4:04 AM [facility] RISK COMP 5 01/07/2024 4:04 AM [facility] LDL Cholesterol, Calculated 74 0 - 99 mg/dL 01/07/2024 4:04 AM [facility] Blood Venipuncture / Unknown 01/07/2024 3:09 AM EST 01/07/2024 3:24 AM EST us Jenise Vides PA-C LAB BLOOD ORDERABLES Final R esult [facility] [address] [phone] from Last 3 Months or Most Recently Relevant to Health Maintenance Advance Directives For more information, please contact: [phone] Documents on File Type Date Recorded Patient Cullet Crusher Expl anation Advance Directives and Livin g [...] if patient is in distress. Care Teams Blow Machine Tender Starch Spraying Relationship Specialty Start Date End Date Ernie Bertrand MD [address] [place] [address] PCP - General Adolescent Medicine 01/05/24
--- OUTSIDE RECORDS SUMMARY | 2025-05-08 03:05 | XMS_ITS | Encounter Summary ---
Author Organization [facility] [employer] Address [address] [place] [address] Care Team Providers Care Senior Clinical Research Associate Name Role Phone Ernie Bretrand MD Primary Care Provider [phone] Encounter Details Date Type Department Care Team (Late st Contact Info) Description 02/29/2024 Outside Orders [facility] Admitting [address] [place] [address] Michael Alva MD [address] [place] [address] Social History Tobacco Use Types [...] place to sleep or slept in a [facility] (including now)? 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 [address] [place] [address] documented as of this encounter Visit Diagnoses Not on filedocumented in this encounter Care Teams Senior Clinical Research Associate Relationship Specialty Start Date End Date Ernie Bertrand MD [address] [place] [address] PCP - General Adolescent Medicine 01/05/24 documented as of this encounter
[2025-05-08 03:06] LABS: Alanine Aminotransferase 99 U/L (12-78); Albumin Level 4.2 g/dl (3.5-5.0); Albumin/Globulin Ratio 1.1 (1.1-1.8); Alkaline Phosphatase 195 U/L (38-126); Anion Gap 9.9 mEq/L (5-15); Aspartate Amino Transferase 107 U/L (17-59); Bilirubin,Total 3.3 mg/dl (0.2-1.3); Blood Urea Nitrogen 7 mg/dl (9-20); Calcium 9.2 mg/dl (8.4-10.2); Carbon Dioxide 31 mmol/L (22.0-30.0); Chloride 103 mmol/L (98-107); Creatinine Clearance Estimated 96 mL/min (50-200); Estimated Glomerular Filt Rate 76 ml/min (>60); GFR (African American) 93 ML/MIN (>60); Globulin 3.8 g/dL (1.3-3.2); Glucose 147 mg/dl (74-100); Lipase 63 U/L (23-300); Potassium 3.9 mmoL/L (3.5-5.1); Sodium 140 mmol/L (136-145)
[2025-05-08] MEDS: LACTATED RINGERS 1000ML 1,000 ML 999 ML IV (03:07)
[2025-05-08] MEDS: ACETAMINOPHEN 500MG TAB 1000 MG PO (03:07)
[2025-05-08] MEDS: ONDANSETRON 4MG/2ML VIAL 4 MG IV (03:07)
[2025-05-08] MEDS: MORPHINE 4MG/ML SYRINGE 4 MG IV (03:07)
[2025-05-08] MEDS: PIPERACILLIN/TAZO 4.5 GM in 0.9 % SODIUM CHLORIDE 100 ML IV ×4 (03:08→20:31)
[2025-05-08 03:35] LABS: Activated Partial Thrombo Time 32.2 seconds (22.8-30.6); INR 1.27 (0.9-1.1); Prothrombin Time 13.8 seconds (10.1-12.5)
--- NOTE | 2025-05-08 03:41 | PC.NURSE ---
report to Felicitas GORDILLO #[id number]
--- NOTE | 2025-05-08 03:59 | PC.NURSE ---
Patient arrived to floor via wheelchair from ED at 03:58.
[2025-05-08 04:07] LABS: HIV Combo NEGATIVE (Negative)
[2025-05-08 04:16] LABS: Hepatitis C Ab Qual. W/ RFX NEGATIVE (Negative)
--- NOTE | 2025-05-08 04:30 | EXP.HP ---
History of Present Illness *Admission Date: 05/08/25 *Reason for visit:: Chest pain *History of present illness: 59-year-old male with reported history of heart failure presents for right-sided abdominal pain. He reports that he had similar pain last night but it was located in his chest. He was seen here for chest pain and was evaluated with no significant abnormalities noted. He did not get any imaging of the abdomen at that time. He reports his pain has worsened, migrated to the right side. He reports feeling like he has a dry mouth. He did not take anything for pain prior to arrival. He is on Xarelto but he was unsure why. Reports no history of abdominal surgery. In the emergency department EKG showed normal sinus rhythm with a left bundle branch block. Bedside ultrasound performed by ER physician demonstrated distended gallbladder with evidence of stones. Blood work demonstrated mild transaminitis, elevated bilirubin and elevated INR I was discussing with him regarding his history of anticoagulation he states that he was on Xarelto for history of A-fib. Also states that at 1 point he was told that he had congestive heart failure. He was on medical therapy at 1 point but reportedly had an improvement of his heart and was taken off all medications. No records are available at this time but he wants to transfer care to [facility] for his heart Hospitalist service contacted for admission History independently obtained. Diagnostics independently interpreted. Old records reviewed. Discussed case with ER physician. [facility] Disclaimer: The information contained in this section may have been updated after the patient was seen, as this information can be updated by other users. Medical History (Updated 05/08/25 @ 03:18 by Erasto Aguirre MD) Hyperlipidemia Diabetes mellitus, type 2 Congestive heart failure Social History (Updated 05/07/25 @ 05:33 by Jayesh Lynn MD) Smoking Status: Current every day smoker alcohol intake: never current occupational status: other Travel in the last 8 weeks?: None Have you lived/traveled outside US in past 30 days?: No Contact w/someone who lives/traveled outside US past 30 days?: No Exposure to someone with infectious disease in past 14 days?: No Do you have a fever (greater than 100.4 F or 38 C)?: No Have you tested positive for COVID-19?: No Exposed to someone with COVID-19 in past 14 days?: No Do you have a sore throat?: No Do you have a cough?: No Do you have any weakness?: No Do you have any diarrhea?: No Are you experiencing any unusual bleeding?: No Do you have any muscle aches/pain?: No Do you have any abdominal pain?: No Are you experiencing loss of taste or smell?: No Other Medical History Have you received the Flu Vaccine for this season: No Have you received the Pneumonia Vaccine: No Review of Systems Review of Systems Review of systems:: pertinent systems reviewed and negative unless documented below Constitutional Constitutional: Denies increased appetite and Reports poor appetite *Cardiovascular Cardiovascular: Denies chest pain and Denies dyspnea *Respiratory Respiratory: Denies chest congestion and Denies dyspnea *Gastrointestinal Gastrointestinal: Reports abdominal pain *Musculoskeletal Musculoskeletal: Reports system reviewed and no additional complaints, except as documented *Neurologic Neurologic: Reports system reviewed and no additional complaints, except as documented Meds Home Medications and Allergies Home Medications ?Medication ?Instructions ?Recorded ?Confirmed ?Type atorvastatin 20 mg tablet 20 mg PO DAILY 05/08/25 05/08/25 History empagliflozin 25 mg tablet 25 mg PO DAILY 05/08/25 05/08/25 History (Jardiance) rivaroxaban 20 mg tablet (Xarelto) 20 mg PO DAILY 05/08/25 05/08/25 History New Prescriptions to Start Prescriptions: Allergies Allergy/AdvReac Type Severity Reaction Status Date / Time No Known Allergies Allergy Verified 05/07/25 02:44 Exam Data for Last 24 hours Vital signs and Labs for Last 24 Hours: Temp Pulse Resp BP Pulse Ox O2 Del Method 97.8 F 88 16 126/76 95 Room Air 05/08/25 04:00 05/08/25 04:00 05/08/25 04:00 05/08/25 04:00 05/08/25 04:00 05/08/25 04:11 Laboratory Results - last 24 hr 05/08/25 02:40: PT 13.8 H, INR 1.27 H, APTT 32.2 H 05/08/25 02:48: WBC 7.0, RBC 4.91, Hgb 16.7, Hct 50.9, MCV 103.7 H, MCH 34.0 H, MCHC 32.8, RDW 13.7, Plt Count 250, MPV 9.7, Neut % (Auto) 61.2, Lymph % (Auto) 27.1, [place] % (Auto) 7.7, Eos % (Auto) 3.3, Baso % (Auto) 0.4, Neut # (Auto) 4.3, Lymph # (Auto) 1.9, [place] # (Auto) 0.5, Eos # (Auto) 0.2, Baso # (Auto) 0.0, Sodium 140, Potassium 3.9, Chloride 103, Carbon Dioxide 31 H, Anion Gap 9.9, BUN 7 L D, Creatinine 1.00, Estimated Creat Clear 96, Estimated GFR 76, Est GFR ( Amer) 93, Glucose 147 H, Calcium 9.2, Total Bilirubin 3.3 H, AST 107 H, ALT 99 H D, Alkaline Phosphatase 195 H, Total Protein 8.0, Albumin 4.2, Globulin 3.8 H, Albumin/Globulin Ratio 1.1, Lipase 63, HCV Ab FLO w/Rflx PCR Qn Negative, HIV Ag/Ab Combo Qual Negative I & O for Last 24 hours: Intake & Output 05/05/25 05/06/25 05/07/25 05/08/25 23:59 23:59 23:59 23:59 Weight 87.09 kg Constitutional Constitutional: no acute distress *Routine HEENT Exam Head: Present normocephalic Eye: Present EOMI and PERRL ENT: Present mucous membranes moist *Routine Neck Exam Neck: Present supple; Absent lymphadenopathy *Routine Respiratory Exam Respiratory: Present CTA bilaterally *Routine Cardiovascular Exam Cardiovascular: Present RRR *Routine Abdominal Exam Abdominal: Present soft and normoactive bowel sounds; Absent tenderness *Routine Rectal Exam Rectal:: deferred *Routine Genitalia Exam Genitalia:: deferred *Routine Extremities Exam Extremities: Present edema; Absent cyanosis or clubbing Comments: Left leg lower extremity edema *Routine Skin Exam Skin: Present warm; Absent rash *Routine Neurological Exam Neurological: Present alert and oriented X3 Assessment and Plan *Assessment and plan (1) Cholecystitis, acute with cholelithiasis: Status: Acute Qualifiers: Biliary obstruction: with biliary obstruction Qualified Code(s): K80.01 - Calculus of gallbladder with acute cholecystitis with obstruction Category: Medical Code(s): K80.00 - Calculus of gallbladder with acute cholecystitis without obstruction (2) Hyperbilirubinemia: Status: Acute Category: Medical Code(s): E80.6 - Other disorders of bilirubin metabolism (3) Transaminitis: Status: Acute Category: Medical Code(s): R74.01 - Elevation of levels of liver transaminase levels (4) LBBB (left bundle branch block): Status: Acute Category: Medical Code(s): I44.7 - Left bundle-branch block, unspecified Plan Acute cholecystitis Choledocholithiasis - Supportive management - GI consult - Right upper quadrant ultrasound Hyperbilirubinemia Transaminitis - Monitor - Plan per above Left bundle branch block - Echo Reported history of CHF - Based on what he is telling it sounds like he has had LV dysfunction at one point and subsequent improvement with medical therapy. Typically with recovery GDMT is not stopped so uncertain as to what happened. Will repeat echo, if he has LV dysfunction we will reinitiate GDMT. Cardiology is consulted, will need further outpatient management of either heart failure with recovered ejection fraction or heart failure reduced ejection fraction and potential [employer] depending on severity Paroxysmal A-fib - Will hold Xarelto for now given upcoming gallbladder procedure. However will resume afterward. May benefit from a Holter monitor on discharge to evaluate A-fib burden. If he is still having paroxys of A-fib with LV dysfunction he will benefit from A-fib ablation on an outpatient basis Chronic medical conditions - Will resume atorvastatin and empagliflozin following medicine reconciliation
--- NOTE | 2025-05-08 04:33 | PC.NURSE ---
New Admit. Ox4, v/s, RA, family at bedside. Pt denied pain upon arrival to the floor @ 0400. Pt has been NPO since 1200 05/07. Possible sx pending. Plan of care ongoing.
--- NOTE | 2025-05-08 05:10 | US_ITS ---
FINAL REPORT CLINICAL HISTORY: cholelithiasis FINDINGS: Sonographic images of the right upper quadrant were obtained. The pancreas is partially obscured.The liver is fatty infiltrated.There are multiple gallstones with shadowing. Gallbladder wall measures up to 4 mm. Common bile duct is within normal limits. IMPRESSION: Gallstones with gallbladder wall thickening. Reviewed, Interpreted and Dictated by Jarrod Fuentes MD Transcribed by Mona Morley Authenticated and [facility]
--- NOTE | 2025-05-08 05:11 | CA_ITS ---
APPROVED REPORT EXAM: Comprehensive 2D, Doppler, and color-flow Echocardiogram Manager Care: Renea Pemberton CRT Ht: 5 ft 8 in Wt: 192lbs BSA: 2.01 BP: 126/76 mmHg Indications: HX HF, LBBB 2D Dimensions LA Volume 19.30 mL LA Volume Index 9.40 mL/m2 (M/F) 16-34 M-Mode Dimensions RVDd 3.14 cm (0.9-2.6) LA Diam 3.16 cm (1.9-4.0) LVDd 4.21 cm (3.5-5.7) LVDs 3.21 cm (3.5-5.7) IVSd 2.39 cm (0.6-1.1) PWd 1.07 cm (0.6-1.1) EF (Teich) 47.70% FS 23.80% EDV (Teich) 79.00 mL TAPSE 2.70 (<1.7) ESV (Teich) 41.30 mL LV Diastology E Decel Time 150 (160-240 msec) E/A Ratio 0.72 MED A' 13.60 cm/s LAT A' 14.30 cm/s Aortic Valve AO Peak GR. 8.10 mmHg Mitral Valve MV E Max Manav. 84.0 (40-130 cm/s) MV A Velocity 117.0 (40-130 cm/s) E/A Ratio 0.72 MV PHT 44.0 ms Pulmonary Valve PV Peak Velocity 109.0 (50-150 cm/s) Tricuspid Valve TR P. Velocity 176.00 cm/s RAP Estimate 10.00 mmHg RVSP 22.40 mmHg Left Ventricle The left ventricle is normal size. The left ventricular systolic function is low normal. There is increased LV wall thickness. Proximal septal thickening is present. The septum is asynchronous. Diastolic function is indeterminate. LVEF is 50%. Right Ventricle Right ventricle is mildly dilated. The right ventricular systolic function is normal. Atria The left atrium size is normal. The right atrium size is normal. There is no Doppler evidence of interatrial shunt. Aortic Valve Aortic valve is mildly thickened. There is no aortic valvular stenosis. No aortic regurgitation is present. Mitral Valve The mitral valve is normal in structure. No evidence of mitral valve stenosis. Trace mitral regurgitation. Tricuspid Valve Tricuspid valve is grossly normal in structure and function. Trace tricuspid regurgitation. There is insufficient TR jet to estimate RVSP. Pulmonic Valve The pulmonary valve is normal in structure. Trace pulmonic regurgitation. Great Vessels The aortic root is normal in size. IVC is normal in size and collapses >50% with inspiration. Pericardium There is no pericardial effusion. Other Information Study Quality: Fair Conclusion Low normal LV systolic function (LVEF 50%). Asynchronous septum. Mild RV dilation with normal RV systolic function No significant valvular stenosis or regurgitation. Electronically signed by : Dang Cordova MD 05/08/2025 12:56:35
[2025-05-08 06:10] LABS: Basophils % 0.5 % (0.1-2.0); Eosinophils # 0.2 Kmm3 (0.0-0.4); Eosinophils % 1.9 % (0.1-12.0); Hematocrit 46.9 % (42.0-52.0); Immature Granulocytes # 0.01 10^3uL; Immature Granulocytes % 0.1 %; Lymphocytes # 1.4 K/mm3 (0.7-4.5); Lymphocytes % 17.4 % (10-50); Mean Corpuscular Hemoglobin 33.4 pg (27.0-31.2); Mean Corpuscular Volume 104.5 fl (80-94); Mean Platelet Volume 9.6 fl (7.4-10.4); Monocytes # 0.7 K/mm3 (0.1-1.0); Monocytes % 8.6 % (1.7-9.3); Neutrophils # 5.7 K/mm3 (1.8-7.8); Neutrophils % 71.5 % (37.0-80.0); Nucleated Red Blood Cells # 0 10^3/uL; Nucleated Red Blood Cells % 0 %; Platelet Count 215 K/mm3 (142-424); Red Blood Count 4.49 M/mm3 (4.60-6.20); Red Cell Distribution Width 13.6 % (11.5-17.5); Red Cell Distribution Width-SD 53.2 fL; White Blood Count 7.9 K/mm3 (4.8-10.8)
[2025-05-08 06:14] LABS: Hemoglobin 15.2 g/dL (14.1-18.0)
[2025-05-08 06:15] LABS: INR 1.21 (0.9-1.1); Prothrombin Time 13.2 seconds (10.1-12.5)
[2025-05-08 06:22] LABS: Albumin Level 3.5 g/dl (3.5-5.0); Chloride 107 mmol/L (98-107); Sodium 138 mmol/L (136-145)
[2025-05-08 06:25] LABS: Alanine Aminotransferase 89 U/L (12-78); Albumin/Globulin Ratio 1.1 (1.1-1.8); Aspartate Amino Transferase 86 U/L (17-59); Blood Urea Nitrogen 6 mg/dl (9-20); Carbon Dioxide 28 mmol/L (22.0-30.0); Cholesterol 114 mg/dl (140-200); Creatinine Clearance Estimated 109 mL/min (50-200); Estimated Glomerular Filt Rate 86 ml/min (>60); GFR (African American) 105 ML/MIN (>60); Globulin 3.3 g/dL (1.3-3.2); Total Protein,Serum 6.8 g/dl (6.3-8.2); Triglycerides 85 mg/dl (30-150); VLDL Cholesterol 17 mg/dL (0-40)
[2025-05-08 06:26] LABS: Alkaline Phosphatase 175 U/L (38-126); Bilirubin,Total 3.1 mg/dl (0.2-1.3); Calcium 8.7 mg/dl (8.4-10.2); Chol/HDL Ratio 4.1 (1-3.5); Glucose 119 mg/dl (74-100); HDL Cholesterol 28 mg/dl (40-60); Phosphorous 3.2 mg/dl (2.5-4.5)
[2025-05-08 06:37] LABS: Direct LDL Cholesterol 52.28 mg/dL (100-129)
--- NOTE | 2025-05-08 07:13 | P.CONS_ITS ---
History of Present Illness *Admission Date: 05/08/25 *History of present illness: Mr. Maruqez is a 59-year-old gentleman who is admitted with biliary colic. He does state that his symptoms initially occurred with an episode of pain in the right upper quadrant and right flank that radiated across the abdomen and lasted for hours on Thursday. This eventually subsided but he does state that he could not get comfortable even sitting back or forward. He felt as if something was going to bust . This recurred again last evening at 11 PM with right upper quadrant abdominal pain/right flank pain and the patient came to the ED. This stated localized in the right upper quadrant. He reports no fever or chills. He has had some darkened urine. Lab work showed normal white blood cell count (7.9). His total bilirubin and liver chemistries were elevated (total bilirubin 3.3, AST 107, ALT 99 and alkaline phosphatase 195). His lipase was 63. Point of entry ultrasound results are not available. The patient reports no family history of gallstones or gallbladder disease. He reports no acholic stools. His EKG and troponins ruled out for acute DC. [facility] Disclaimer: The information contained in this section may have been updated after the patient was seen, as this information can be updated by other users. Medical History (Updated 05/08/25 @ 07:18 by Antonio Franklin II, MD) Hyperlipidemia Diabetes mellitus, type 2 Congestive heart failure Social History (Updated 05/07/25 @ 05:33 by Jayesh Lynn MD) Smoking Status: Current every day smoker alcohol intake: never current occupational status: other Travel in the last 8 weeks?: None Have you lived/traveled outside US in past 30 days?: No Contact w/someone who lives/traveled outside US past 30 days?: No Exposure to someone with infectious disease in past 14 days?: No Do you have a fever (greater than 100.4 F or 38 C)?: No Have you tested positive for COVID-19?: No Exposed to someone with COVID-19 in past 14 days?: No Do you have a sore throat?: No Do you have a cough?: No Do you have any weakness?: No Do you have any diarrhea?: No Are you experiencing any unusual bleeding?: No Do you have any muscle aches/pain?: No Do you have any abdominal pain?: No Are you experiencing loss of taste or smell?: No Review of Systems *Neurologic Neurologic: Reports system reviewed and no additional complaints, except as documented Meds Home Medications and Allergies Home Medications ?Medication ?Instructions ?Recorded ?Confirmed ?Type atorvastatin 20 mg tablet 20 mg PO DAILY 05/08/2508/24 History empagliflozin 25 mg tablet 25 mg PO DAILY 05/08/2508/24 History (Jardiance) rivaroxaban 20 mg tablet (Xarelto) 20 mg PO DAILY 08/2405/08/25 History New Prescriptions to Start Prescriptions: Allergies Allergy/AdvReac Type Severity Reaction Status Date / Time No Known Allergies Allergy Verified 05/07/25 02:44 Exam (Inpt) Vital signs and Labs for Last 24 Hours: Temp Pulse Resp BP Pulse Ox O2 Del Method 97.8 F 88 16 126/76 95 Room Air 05/08/25 04:00 05/08/25 04:00 05/08/25 04:00 05/08/25 04:00 05/08/25 04:00 05/08/25 06:29 Laboratory Results - last 24 hr 05/08/25 02:40: PT 13.8 H, INR 1.27 H, APTT 32.2 H 05/08/25 02:48: WBC 7.0, RBC 4.91, Hgb 16.7, Hct 50.9, MCV 103.7 H, MCH 34.0 H, MCHC 32.8, RDW 13.7, Plt Count 250, MPV 9.7, Neut % (Auto) 61.2, Lymph % (Auto) 27.1, [place] % (Auto) 7.7, Eos % (Auto) 3.3, Baso % (Auto) 0.4, Neut # (Auto) 4.3, Lymph # (Auto) 1.9, [place] # (Auto) 0.5, Eos # (Auto) 0.2, Baso # (Auto) 0.0, Sodium 140, Potassium 3.9, Chloride 103, Carbon Dioxide 31 H, Anion Gap 9.9, BUN 7 L D, Creatinine 1.00, Estimated Creat Clear 96, Estimated GFR 76, Est GFR ( Amer) 93, Glucose 147 H, Calcium 9.2, Total Bilirubin 3.3 H, AST 107 H, ALT 99 H D, Alkaline Phosphatase 195 H, Total Protein 8.0, Albumin 4.2, Globulin 3.8 H, Albumin/Globulin Ratio 1.1, Lipase 63, HCV Ab FLO w/Rflx PCR Qn Negative, HIV Ag/Ab Combo Qual Negative 05/08/25 05:44: WBC 7.9, RBC 4.49 L, Hgb 15.2, Hct 46.9, MCV 104.5 H, MCH 33.4 H , MCHC 32.0, RDW 13.6, Plt Count 215, MPV 9.6, Neut % (Auto) 71.5, Lymph % (Auto) 17.4, [place] % (Auto) 8.6, Eos % (Auto) 1.9, Baso % (Auto) 0.5, Neut # (Auto) 5.7, Lymph # (Auto) 1.4, [place] # (Auto) 0.7, Eos # (Auto) 0.2, Baso # (Auto) 0.0, PT 13.2 H, INR 1.21 H, Sodium 138, Potassium 4.0, Chloride 107, Carbon Dioxide 28, Anion Gap 7.0, BUN 6 L, Creatinine 0.90, Estimated Creat Clear 109, Estimated GFR 86, Est GFR ( Amer) 105, Glucose 119 H, Calcium 8.7, Phosphorus 3.2, Total Bilirubin 3.1 H, AST 86 H, ALT 89 H, Alkaline Phosphatase 175 H, Total Protein 6.8, Albumin 3.5 D, Globulin 3.3 H, Albumin/Globulin Ratio 1.1, Triglycerides 85, Cholesterol 114 L, LDL Cholesterol Direct 52.28 L, VLDL Cholesterol 17, HDL Cholesterol 28 L, Cholesterol/HDL Ratio 4.1 H I & O for Labs for Last 24 Hours: Intake & Output 05/05/25 05/06/25 05/07/25 05/08/25 23:59 23:59 23:59 23:59 Weight 192 lb Comments:: Normoactive bowel sounds, soft, tenderness in right upper quadrant with possible early Jovel sign. No rebound or guarding, no hernias Results Labs 05/08/25 05:44 05/08/25 05:44 Labs: Laboratory Results - last 24 hr 05/08/25 02:40: PT 13.8 H, INR 1.27 H, APTT 32.2 H 05/08/25 02:48: WBC 7.0, RBC 4.91, Hgb 16.7, Hct 50.9, MCV 103.7 H, MCH 34.0 H, MCHC 32.8, RDW 13.7, Plt Count 250, MPV 9.7, Neut % (Auto) 61.2, Lymph % (Auto) 27.1, [place] % (Auto) 7.7, Eos % (Auto) 3.3, Baso % (Auto) 0.4, Neut # (Auto) 4.3, Lymph # (Auto) 1.9, [place] # (Auto) 0.5, Eos # (Auto) 0.2, Baso # (Auto) 0.0, Sodium 140, Potassium 3.9, Chloride 103, Carbon Dioxide 31 H, Anion Gap 9.9, BUN 7 L D, Creatinine 1.00, Estimated Creat Clear 96, Estimated GFR 76, Est GFR ( Amer) 93, Glucose 147 H, Calcium 9.2, Total Bilirubin 3.3 H, AST 107 H, ALT 99 H D, Alkaline Phosphatase 195 H, Total Protein 8.0, Albumin 4.2, Globulin 3.8 H, Albumin/Globulin Ratio 1.1, Lipase 63, HCV Ab FLO w/Rflx PCR Qn Negative, HIV Ag/Ab Combo Qual Negative 05/08/25 05:44: WBC 7.9, RBC 4.49 L, Hgb 15.2, Hct 46.9, MCV 104.5 H, MCH 33.4 H , MCHC 32.0, RDW 13.6, Plt Count 215, MPV 9.6, Neut % (Auto) 71.5, Lymph % (Auto) 17.4, [place] % (Auto) 8.6, Eos % (Auto) 1.9, Baso % (Auto) 0.5, Neut # (Auto) 5.7, Lymph # (Auto) 1.4, [place] # (Auto) 0.7, Eos # (Auto) 0.2, Baso # (Auto) 0.0, PT 13.2 H, INR 1.21 H, Sodium 138, Potassium 4.0, Chloride 107, Carbon Dioxide 28, Anion Gap 7.0, BUN 6 L, Creatinine 0.90, Estimated Creat Clear 109, Estimated GFR 86, Est GFR ( Amer) 105, Glucose 119 H, Calcium 8.7, Phosphorus 3.2, Total Bilirubin 3.1 H, AST 86 H, ALT 89 H, Alkaline Phosphatase 175 H, Total Protein 6.8, Albumin 3.5 D, Globulin 3.3 H, Albumin/Globulin Ratio 1.1, Triglycerides 85, Cholesterol 114 L, LDL Cholesterol Direct 52.28 L, VLDL Cholesterol 17, HDL Cholesterol 28 L, Cholesterol/HDL Ratio 4.1 H Assessment and Plan *Assessment and plan (1) Right upper quadrant abdominal pain: Status: Acute Category: Medical Code(s): R10.11 - Right upper quadrant pain (2) Cholecystitis, acute with cholelithiasis: Status: Acute Qualifiers: Biliary obstruction: with biliary obstruction Qualified Code(s): K80.01 - Calculus of gallbladder with acute cholecystitis with obstruction Category: Medical Code(s): K80.00 - Calculus of gallbladder with acute cholecystitis without obstruction (3) Hyperbilirubinemia: Status: Acute Category: Medical Code(s): E80.6 - Other disorders of bilirubin metabolism (4) Choledocholithiasis: Status: Acute Category: Medical Code(s): K80.50 - Calculus of bile duct without cholangitis or cholecystitis without obstruction Plan 1. Right upper quadrant abdominal pain with elevated bilirubin and liver chemistries suspicious for choledocholithiasis. I would like to see results of ultrasound. I will also obtain an MRCP today. If it is clear that he has a common bile duct stone, we will proceed with ERCP subsequently. I have discussed the case with the patient and family. He is not have gallstone pancreatitis but I do suspect acute cholecystitis based upon clinical history and exam.
--- NOTE | 2025-05-08 07:20 | MR_ITS ---
FINAL REPORT CLINICAL HISTORY: Suspected choledocholithiasis FINDINGS: Multiplanar MR imaging of the abdomen was performed without and with contrast. Images of the liver reveal no evidence of mass. There is no evidence of biliary ductal dilatation. There are small foci of abnormal signal in the dependent portion of the gallbladder consistent with small stones measuring up to 4 mm. This is best seen on image 9 of series 3. Gallbladder is distended. No other mass or adenopathy is identified. No abnormal fluid collection is seen. No abnormal contrast enhancement is seen on the postcontrast images. IMPRESSION: No evidence of choledocholithiasis. Distended gallbladder with gallstones. Reviewed, Interpreted and Dictated by Jarrod Fuentes MD Transcribed by Mona Morley Authenticated and . [facility]
--- NOTE | 2025-05-08 08:17 | HMH.PHAINT1 ---
Pharmacy Intervention Comments: HOME MEDICATION LIST VERIFIED USING LIST FROM OUTPATIENT PHARMACY AND PT INTERVIEW
--- NOTE | 2025-05-08 09:57 | EXP.SURG.CON ---
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 He underwent workup and was found to have above normal bilirubin at 1.8. He underwent evaluation for cardiac etiology which was unremarkable. Arrangements were made for outpatient management at that time. He presented back to the emergency department with similar symptoms but now severe in the right upper abdomen and under his right ribs rated as a 10 out of 10. He was found to have a bilirubin of 3.3. He has an AST of 107 and ALT of 99 and alkaline phosphatase 195. He was admitted for inpatient management and gastroenterology and surgical consultations were ordered. Gastroenterology is planning MRCP with possible ERCP. Gallbladder ultrasound appears to show thick-walled gallbladder with pericholecystic fluid and stones. Common bile duct measures 6 mm. [facility] Disclaimer: The information contained in this section may have been updated after the patient was seen, as this information can be updated by other users. Medical History (Updated 05/08/25 @ 07:18 by Antonio Franklin II, MD) Hyperlipidemia Diabetes mellitus, type 2 Congestive heart failure Social History (Updated 05/07/25 @ 05:33 by Jayesh Lynn MD) Smoking Status: Current every day smoker alcohol intake: never current occupational status: other Travel in the last 8 weeks?: None Have you lived/traveled outside US in past 30 days?: No Contact w/someone who lives/traveled outside US past 30 days?: No Exposure to someone with infectious disease in past 14 days?: No Do you have a fever (greater than 100.4 F or 38 C)?: No Have you tested positive for COVID-19?: No Exposed to someone with COVID-19 in past 14 days?: No Do you have a sore throat?: No Do you have a cough?: No Do you have any weakness?: No Do you have any diarrhea?: No Are you experiencing any unusual bleeding?: No Do you have any muscle aches/pain?: No Do you have any abdominal pain?: No Are you experiencing loss of taste or smell?: No Review of Systems *Neurologic Neurologic: Reports system reviewed and no additional complaints, except as documented Meds Home Medications and Allergies Home Medications ?Medication ?Instructions ?Recorded ?Confirmed ?Type atorvastatin 20 mg tablet 20 mg PO DAILY 05/08/25 05/08/25 History empagliflozin 25 mg tablet 25 mg PO DAILY 05/08/25 05/08/25 History (Jardiance) gabapentin 300 mg capsule 300 mg PO BID 05/08/25 05/08/25 History rivaroxaban 20 mg tablet (Xarelto) 20 mg PO DAILY 05/08/25 05/08/25 History New Prescriptions to Start Prescriptions: Allergies Allergy/AdvReac Type Severity Reaction Status Date / Time No Known Allergies Allergy Verified 05/07/25 02:44 Exam (Inpt) Vital signs and Labs for Last 24 Hours: Temp Pulse Resp BP Pulse Ox O2 Del Method 98.3 F 84 20 95/60 L 89 L Room Air 05/08/25 08:00 05/08/25 08:00 05/08/25 08:00 05/08/25 08:00 05/08/25 08:00 05/08/25 09:15 Laboratory Results - last 24 hr 05/08/25 02:40: PT 13.8 H, INR 1.27 H, APTT 32.2 H 05/08/25 02:48: WBC 7.0, RBC 4.91, Hgb 16.7, Hct 50.9, MCV 103.7 H, MCH 34.0 H, MCHC 32.8, RDW 13.7, Plt Count 250, MPV 9.7, Neut % (Auto) 61.2, Lymph % (Auto) 27.1, Mathews % (Auto) 7.7, Eos % (Auto) 3.3, Baso % (Auto) 0.4, Neut # (Auto) 4.3, Lymph # (Auto) 1.9, Mathews # (Auto) 0.5, Eos # (Auto) 0.2, Baso # (Auto) 0.0, Sodium 140, Potassium 3.9, Chloride 103, Carbon Dioxide 31 H, Anion Gap 9.9, BUN 7 L D, Creatinine 1.00, Estimated Creat Clear 96, Estimated GFR 76, Est GFR ( Amer) 93, Glucose 147 H, Calcium 9.2, Total Bilirubin 3.3 H, AST 107 H, ALT 99 H D, Alkaline Phosphatase 195 H, Total Protein 8.0, Albumin 4.2, Globulin 3.8 H, Albumin/Globulin Ratio 1.1, Lipase 63, HCV Ab FLO w/Rflx PCR Qn Negative, HIV Ag/Ab Combo Qual Negative 05/08/25 05:44: WBC 7.9, RBC 4.49 L, Hgb 15.2, Hct 46.9, MCV 104.5 H, MCH 33.4 H, MCHC 32.0, RDW 13.6, Plt Count 215, MPV 9.6, Neut % (Auto) 71.5, Lymph % (Auto) 17.4, Mathews % (Auto) 8.6, Eos % (Auto) 1.9, Baso % (Auto) 0.5, Neut # (Auto) 5.7, Lymph # (Auto) 1.4, [place]ws # (Auto) 0.7, Eos # (Auto) 0.2, Baso # (Auto) 0.0, PT 13.2 H, INR 1.21 H, Sodium 138, Potassium 4.0, Chloride 107, Carbon Dioxide 28, Anion Gap 7.0, BUN 6 L, Creatinine 0.90, Estimated Creat Clear 109, Estimated GFR 86, Est GFR ( Amer) 105, Glucose 119 H, Calcium 8.7, Phosphorus 3.2, Total Bilirubin 3.1 H, AST 86 H, ALT 89 H, Alkaline Phosphatase 175 H, Total Protein 6.8, Albumin 3.5 D, Globulin 3.3 H, Albumin/Globulin Ratio 1.1, Triglycerides 85, Cholesterol 114 L, LDL Cholesterol Direct 52.28 L, VLDL Cholesterol 17, HDL Cholesterol 28 L, Cholesterol/HDL Ratio 4.1 H I & O for Labs for Last 24 Hours: Intake & Output 05/05/25 05/06/25 05/07/25 05/08/25 11:59 11:59 11:59 11:59 Output Total 0 / 0 Balance 0 / 0 Weight 192 lb Constitutional: no acute distress Head: Present normocephalic Respiratory: Present CTA bilaterally GI: Present soft and tenderness Comments:: Some tenderness in the right upper quadrant. (male): Present deferred Results Labs 05/08/25 05:44 05/08/25 05:44 Labs: Laboratory Results - last 24 hr 05/08/25 02:40: PT 13.8 H, INR 1.27 H, APTT 32.2 H 05/08/25 02:48: WBC 7.0, RBC 4.91, Hgb 16.7, Hct 50.9, MCV 103.7 H, MCH 34.0 H, MCHC 32.8, RDW 13.7, Plt Count 250, MPV 9.7, Neut % (Auto) 61.2, Lymph % (Auto) 27.1, Mathews % (Auto) 7.7, Eos % (Auto) 3.3, Baso % (Auto) 0.4, Neut # (Auto) 4.3, Lymph # (Auto) 1.9, Mathews # (Auto) 0.5, Eos # (Auto) 0.2, Baso # (Auto) 0.0, Sodium 140, Potassium 3.9, Chloride 103, Carbon Dioxide 31 H, Anion Gap 9.9, BUN 7 L D, Creatinine 1.00, Estimated Creat Clear 96, Estimated GFR 76, Est GFR ( Amer) 93, Glucose 147 H, Calcium 9.2, Total Bilirubin 3.3 H, AST 107 H, ALT 99 H D, Alkaline Phosphatase 195 H, Total Protein 8.0, Albumin 4.2, Globulin 3.8 H, Albumin/Globulin Ratio 1.1, Lipase 63, HCV Ab FLO w/Rflx PCR Qn Negative, HIV Ag/Ab Combo Qual Negative 05/08/25 05:44: WBC 7.9, RBC 4.49 L, Hgb 15.2, Hct 46.9, MCV 104.5 H, MCH 33.4 H, MCHC 32.0, RDW 13.6, Plt Count 215, MPV 9.6, Neut % (Auto) 71.5, Lymph % (Auto) 17.4, Mathews % (Auto) 8.6, Eos % (Auto) 1.9, Baso % (Auto) 0.5, Neut # (Auto) 5.7, Lymph # (Auto) 1.4, Mathews # (Auto) 0.7, Eos # (Auto) 0.2, Baso # (Auto) 0.0, PT 13.2 H, INR 1.21 H, Sodium 138, Potassium 4.0, Chloride 107, Carbon Dioxide 28, Anion Gap 7.0, BUN 6 L, Creatinine 0.90, Estimated Creat Clear 109, Estimated GFR 86, Est GFR ( Amer) 105, Glucose 119 H, Calcium 8.7, Phosphorus 3.2, Total Bilirubin 3.1 H, AST 86 H, ALT 89 H, Alkaline Phosphatase 175 H, Total Protein 6.8, Albumin 3.5 D, Globulin 3.3 H, Albumin/Globulin Ratio 1.1, Triglycerides 85, Cholesterol 114 L, LDL Cholesterol Direct 52.28 L, VLDL Cholesterol 17, HDL Cholesterol 28 L, Cholesterol/HDL Ratio 4.1 H Assessment and Plan *Assessment and plan (1) Right upper quadrant abdominal pain: Status: Acute Category: Medical Code(s): R10.11 - Right upper quadrant pain (2) Choledocholithiasis: Status: Acute Category: Medical Code(s): K80.50 - Calculus of bile duct without cholangitis or cholecystitis without obstruction Plan Patient has cholelithiasis with possible choledocholithiasis. MRCP pending.
--- NOTE | 2025-05-08 11:35 | EXP.CARD.CON ---
History of Present Illness History of Present Illness Consult date: 05/08/25 Chief complaint: Abdominal pain History of present illness: 59-year-old white male prior patient of Dr. Melendez with a history of paroxysmal atrial fibrillation, severe BLE lymphedema, and acute left systolic heart failure hospitalization at [facility] in 2023. Patient reports heart cath was normal at that time. Symptoms have resolved and currently on Xarelto Jardiance and atorvastatin. He has not followed up with cardiology in at least 1 year. He does not know the details of his heart failure admission. Patient presented here with episodic right-sided abdominal pain and is currently undergoing workup for his gallbladder. We are consulted to help review medication list and reestablish patient with cardiology. His proBNP is 88, chest x-ray is clear, 2D echo is pending. EKG shows sinus rhythm with left bundle branch block. [facility] Disclaimer: The information contained in this section may have been updated after the patient was seen, as this information can be updated by other users. Medical History Hyperlipidemia Diabetes mellitus, type 2 Congestive heart failure Social History Smoking Status: Current every day smoker alcohol intake: never current occupational status: other Travel in the last 8 weeks?: None Have you lived/traveled outside US in past 30 days?: No Contact w/someone who lives/traveled outside US past 30 days?: No Exposure to someone with infectious disease in past 14 days?: No Do you have a fever (greater than 100.4 F or 38 C)?: No Have you tested positive for COVID-19?: No Exposed to someone with COVID-19 in past 14 days?: No Do you have a sore throat?: No Do you have a cough?: No Do you have any weakness?: No Do you have any diarrhea?: No Are you experiencing any unusual bleeding?: No Do you have any muscle aches/pain?: No Do you have any abdominal pain?: No Are you experiencing loss of taste or smell?: No Review of Systems Constitutional Constitutional: Denies fatigue and Denies weakness Eyes Eyes: Denies loss of vision ENT Ears, Nose, Mouth, and Throat: Denies hearing loss *Cardiovascular Cardiovascular: Denies chest pain and Denies dyspnea *Respiratory Respiratory: Denies cough and Denies dyspnea *Gastrointestinal Gastrointestinal: Denies change in stool character, Denies nausea and Denies vomiting Comments: Abdominal pain *Genitourinary Genitourinary: Denies difficulty urinating *Musculoskeletal Musculoskeletal: Denies muscle weakness Integumentary/Breasts Skin/Breast: Denies changing lesions *Neurologic Neurologic: Reports system reviewed and no additional complaints, except as documented, Denies loss of vision and Denies weakness Endocrine Endocrine: Denies fatigue Exam Data for Last 24 hours Vital signs and Labs for Last 24 Hours: Temp Pulse Resp BP Pulse Ox O2 Del Method 98.3 F 84 20 95/60 L 89 L Room Air 05/08/25 08:00 05/08/25 08:00 05/08/25 08:00 05/08/25 08:00 05/08/25 08:00 05/08/25 09:15 Laboratory Results - last 24 hr 05/08/25 02:40: PT 13.8 H, INR 1.27 H, APTT 32.2 H 05/08/25 02:48: WBC 7.0, RBC 4.91, Hgb 16.7, Hct 50.9, MCV 103.7 H, MCH 34.0 H, MCHC 32.8, RDW 13.7, Plt Count 250, MPV 9.7, Neut % (Auto) 61.2, Lymph % (Auto) 27.1, [place] % (Auto) 7.7, Eos % (Auto) 3.3, Baso % (Auto) 0.4, Neut # (Auto) 4.3, Lymph # (Auto) 1.9, [place] # (Auto) 0.5, Eos # (Auto) 0.2, Baso # (Auto) 0.0, Sodium 140, Potassium 3.9, Chloride 103, Carbon Dioxide 31 H, Anion Gap 9.9, BUN 7 L D, Creatinine 1.00, Estimated Creat Clear 96, Estimated GFR 76, Est GFR ( Amer) 93, Glucose 147 H, Calcium 9.2, Total Bilirubin 3.3 H, AST 107 H, ALT 99 H D, Alkaline Phosphatase 195 H, Total Protein 8.0, Albumin 4.2, Globulin 3.8 H, Albumin/Globulin Ratio 1.1, Lipase 63, HCV Ab FLO w/Rflx PCR Qn Negative, HIV Ag/Ab Combo Qual Negative 05/08/25 05:44: WBC 7.9, RBC 4.49 L, Hgb 15.2, Hct 46.9, MCV 104.5 H, MCH 33.4 H, MCHC 32.0, RDW 13.6, Plt Count 215, MPV 9.6, Neut % (Auto) 71.5, Lymph % (Auto) 17.4, [place] % (Auto) 8.6, Eos % (Auto) 1.9, Baso % (Auto) 0.5, Neut # (Auto) 5.7, Lymph # (Auto) 1.4, [place] # (Auto) 0.7, Eos # (Auto) 0.2, Baso # (Auto) 0.0, PT 13.2 H, INR 1.21 H, Sodium 138, Potassium 4.0, Chloride 107, Carbon Dioxide 28, Anion Gap 7.0, BUN 6 L, Creatinine 0.90, Estimated Creat Clear 109, Estimated GFR 86, Est GFR ( Amer) 105, Glucose 119 H, Calcium 8.7, Phosphorus 3.2, Total Bilirubin 3.1 H, AST 86 H, ALT 89 H, Alkaline Phosphatase 175 H, Total Protein 6.8, Albumin 3.5 D, Globulin 3.3 H, Albumin/Globulin Ratio 1.1, Triglycerides 85, Cholesterol 114 L, LDL Cholesterol Direct 52.28 L, VLDL Cholesterol 17, HDL Cholesterol 28 L, Cholesterol/HDL Ratio 4.1 H I & O for Last 24 hours: Intake & Output 05/05/25 05/06/25 05/07/25 05/08/25 23:59 23:59 23:59 23:59 Output Total 0 / 0 Balance 0 / 0 Weight 192 lb Constitutional Constitutional: no acute distress and cooperative *Routine HEENT Exam Eye: Present PERRL *Routine Respiratory Exam Respiratory: Present CTA bilaterally; Absent accessory muscle use, wheezes or crackles *Routine Cardiovascular Exam Cardiovascular: Present RRR, Normal S1 and Normal S2; Absent murmur, gallop or rubs *Routine Abdominal Exam Abdominal: Present tenderness *Routine Extremities Exam Extremities: Present pulses intact; Absent cyanosis or edema *Routine Skin Exam Skin: Present intact; Absent erythema or wounds *Routine Neurological Exam Neurological: Present alert and oriented X3 Routine Psychiatric Exam Psychiatric: Present cooperative Meds Home Medications and Allergies Home Medications ?Medication ?Instructions ?Recorded ?Confirmed ?Type atorvastatin 20 mg tablet 20 mg PO DAILY 05/08/25 05/08/25 History empagliflozin 25 mg tablet 25 mg PO DAILY 05/08/25 05/08/25 History (Jardiance) gabapentin 300 mg capsule 300 mg PO BID 05/08/25 05/08/25 History rivaroxaban 20 mg tablet (Xarelto) 20 mg PO DAILY 05/08/25 05/08/25 History New Prescriptions to Start Prescriptions: Allergies Allergy/AdvReac Type Severity Reaction Status Date / Time No Known Allergies Allergy Verified 05/07/25 02:44 Assessment and Plan *Assessment and plan (1) Heart failure, unspecified: Status: Acute Category: Medical Code(s): I50.9 - Heart failure, unspecified (2) Paroxysmal atrial fibrillation: Status: Acute Category: Medical Code(s): I48.0 - Paroxysmal atrial fibrillation (3) Right upper quadrant abdominal pain: Status: Acute Category: Medical Code(s): R10.11 - Right upper quadrant pain (4) LBBB (left bundle branch block): Status: Acute Category: Medical Code(s): I44.7 - Left bundle-branch block, unspecified (5) Lymphedema of lower extremity: Status: Acute Category: Medical Code(s): I89.0 - Lymphedema, not elsewhere classified Plan Heart Failure Unspecified - Unknown details, heart failure admission [facility] 2023 - Patient currently only on SGLT2 for GDMT - proBNP 88, chest x-ray clear, chronic bilateral lower extremity lymphedema - Will obtain records from [place] and order 2D echo here and reassess medications and treatment Paroxysmal atrial fibrillation - Known diagnosis on Xarelto outpatient but no AV blockers - Sinus rhythm here Left bundle branch block - Noted on EKG here, unknown duration, no prior for comparison Chronic bilateral lower extremity lymphedema - This is severe and causes chronic daily pain for patient and requires wound care Right upper quadrant pain - Presumed gallbladder or bile duct etiology, GI workup in process CV stable, further plans pending echo results. Addendum: 2D echo shows normal LV function. Will continue current medication regimen and follow-up with patient in the office. Will sign off for now, please advise if further CV concerns this admission.
[2025-05-08] MEDS: KETOROLAC 30MG/ML VIAL 15 MG IV (14:53)
--- NOTE | 2025-05-08 15:42 | PC.NURSE ---
Patient able to sit in chair for most of afternoon. Pain reported in right upper quadrant, 4/10. MD aware and toradol given. Patient stated toradol helped with pain, rating 2/10. VS stable and patient remained on room air. MRCP results pending.
--- OUTSIDE RECORDS SUMMARY | 2025-05-08 16:09 | XMS_ITS | Encounter Summary ---
Author Organization [facility] [employer] Address [address] [place] [address] Care Team Providers Care Homicide Squad Sergeant Name Role Phone Ernie Bertrand MD Primary Care Provider [phone] Encounter Details Date Type Department Care Team (Late st Contact Info) Description 02/29/2024 Outside Orders [facility] Admitting [address] [place] [address] Michael Alva MD [address] [place] [address] Social History Tobacco Use Types [...] place to sleep or slept in a penitentiary (including now)? 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 Gender Identity Not on file Sexual Orientation Not on file documented as of this encounter Plan of Treatment Upcoming Encounters Date Type Department Care Team (Late st Contact Info) Description 05/11/2025 9:00 AM EDT Office Visit [facility] Cardiology - [place] [address] [place] [address] Michael Alva MD [address] [facility] [address] [place] [address] documented as of this encounter Visit Diagnoses Not on filedocumented in this encounter Care Teams Homicide Squad Sergeant Relationship Specialty Start Date End Date Ernie Bertrand MD [address] [place] [address] [place] [address] PCP - General Adolescent Medicine 01/05/24 documented as of this encounter
--- OUTSIDE RECORDS SUMMARY | 2025-05-08 16:09 | XMS_ITS | Encounter Summary ---
Author Organization [employer] Address [address] [place] [address] Care Team Providers Care Channel Sales Director Name Role Phone Ernie Bertrand MD Primary Care Provider [phone] Reason for Referral * Ultrasound (Routine) - Closed Specialty Diagnoses / Procedures Referred By Contac t Referred To Contact Diagnoses Edema of left lower extremity Procedures US DOPPLER VENOUS LEG LEFT Ernie Bertrand MD [address] [place] [address] Phone: tel: fax: Referral ID Status Reason Start Date Expiration Date Visits Re quested Visits Authorized [id number] Closed 04/20/2024 04/20/2025 1 1 Encounter Details Date Type Department Care Team (Late st Contact Info) Description 04/20/2024 Outside Orders [facility] Central Scheduling [address] [place] [address] Ernie Bertrand MD [address] [facility] [address] [place] [address] Edema of left lower extremity (Primary Dx) [...] place to sleep or slept in a long-term (including now)? 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 Gender Identity Not on file Sexual Orientation Not on file documented as of this encounter Plan of Treatment Upcoming Encounters Date Type Department Care Team (Late st Contact Info) Description 05/11/2025 9:00 AM EDT Office Visit [facility] Cardiology - [place] [address] [place] [address] Michael Alva MD [address] [facility] [address] [place] [address] documented as of this encounter Results * [...] extremity documented in this encounter Care Teams Channel Sales Director Relationship Specialty Start Date End Date Ernie Bertrand MD [address] [place] [address] PCP - General Adolescent Medicine 01/05/24 documented as of this encounter
--- OUTSIDE RECORDS SUMMARY | 2025-05-08 16:09 | XMS_ITS | Clinical Summary ---
Author Organization [employer] Address [address] [place] [address] Care Team Providers Care Hog Sticker Name Role Phone Ernie Bertrand MD Primary Care Provider [phone] Allergies No known active allergies Medications atorvastatin [...] place to sleep or slept in a jail (including now)? No 01/05/2024 Utilities Answer Date [...] Do you speak a language other than Persian at [facility]? 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 Gender Identity Not on file Sexual Orientation [...] Description 05/11/2025 9:00 AM EDT Office Visit [facility] Cardiology - [place] [address] [place] [address] Michael Alva MD [address] [facility] [address] [place] [address] Health Maintenance Due Date Last Done Comments [...] 0 - 249 mg/dL 01/07/2024 4:04 AM [facility] Cholesterol 116 0 - 199 mg/dL 01/07/2024 4:04 AM [facility] Comment: 200 to 239 mg/dL = Moderate (borderline) >239 mg/dL = High HDL Cholesterol 24(L) >=40 mg/dL 01/07/2024 4:04 AM [facility] Comment: >=60 mg/dL = Desirable <40 mg/dL = Increased Risk All other components are listed individually or are calculations VLDL Cholesterol 18.2 5 - 40 mg/dL 01/07/2024 4:04 AM [facility] Cholesterol/HDL ratio 4.8(H) 0.0 - 3.2 01/07/2024 4:04 AM [facility] LDl/HDL Ratio 3 0 - 4 01/07/2024 4:04 AM [facility] RISK COMP 5 01/07/2024 4:04 AM [facility] LDL Cholesterol, Calculated 74 0 - 99 mg/dL 01/07/2024 4:04 AM [facility] Blood Venipuncture / Unknown 01/07/2024 3:09 AM EST 01/07/2024 3:24 AM EST us Jenise Vides PA-C LAB BLOOD ORDERABLES Final R esult [facility] [address] [place] [address], [facility] [phone] from Last 3 Months or Most Recently Relevant to Health Maintenance Advance Directives For more information, please contact: [phone] Documents on File Type Date Recorded Patient Law Office Manager Expl anation Advance Directives and Livin [...] if patient is in distress. Care Teams Hog Sticker Relationship Specialty Start Date End Date Ernie Bertrand MD [address] [place] [address] PCP - General Adolescent Medicine 01/05/24
--- OUTSIDE RECORDS SUMMARY | 2025-05-08 16:09 | XMS_ITS | Referral Summary ---
Author Organization [employer] Address [address] [place] [address] Care Team Providers Care Point Of Care Specialist Name Role Phone Ernie Bertrand MD Primary Care Provider [phone] Allergies No known active allergies Medications atorvastatin [...] help 07/15/2024 Family and Community Support Answer Blil e Recorded If for any reason you need h elp with day-to-day activities such as bathing, preparing meals, shopping, managing finances, etc., do you get the help you need? I don't need any help 07/15/2024 Feeling Lonely or Isolated 0 07/15 Educational Attainment Answer Date Dustin rded Do you speak a language other than Panamanian at [facility]? 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 Cardiology - [place] [address] [place] [address] Michael Alva MD [address] [facility] [address] [place] [address] Procedures Procedure Name Priority Date/Time Associated Diagnosis Comments LIPID PANEL Routine 01/07/2024 3:09 AM EST from Last 3 Months or Most Recently Relevant to Health Maintenance Results * (ABNORMAL) Lipid panel (01/07/2024 3:09 AM EST) Triglycerides 91 0 - 249 mg/dL 01/07/2024 4:04 AM [facility] Cholesterol 116 0 - 199 mg/dL 01/07/2024 4:04 AM [facility] Comment: 200 to 239 mg/dL = Moderate (borderline) >239 mg/dL = High HDL Cholesterol 24(L) >=40 mg/dL 01/07/2024 4:04 AM [facility] Comment: >=60 mg/dL = Desirable <40 mg/dL = Increased Risk All other components are listed individually or are calculations VLDL Cholesterol 18.2 5 - 40 mg/dL 01/07/2024 4:04 AM [facility] Cholesterol/HDL ratio 4.8(H) 0.0 - 3.2 01/07/2024 4:04 AM [facility] LDl/HDL Ratio 3 0 - 4 01/07/2024 4:04 AM [facility] RISK COMP 5 01/07/2024 4:04 AM [facility] LDL Cholesterol, Calculated 74 0 - 99 mg/dL 01/07/2024 4:04 AM [facility] Blood Venipuncture / Unknown 01/07/2024 3:09 AM EST 01/07/2024 3:24 AM EST us Jenise Vides PA-C LAB BLOOD ORDERABLES Final R esult [facility] [address] [phone] from Last 3 Months or Most Recently Relevant to Health Maintenance Advance Directives For more information, please contact: [phone] Documents on File Type Date Recorded Patient Marketing Assistant Manager Expl anation Advance Directives and Livin [...] if patient is in distress. Care Teams Point Of Care Specialist Relationship Specialty Start Date End Date Ernie Bertrand MD [address] [place] [address] PCP - General Adolescent Medicine 01/05/24
--- OUTSIDE RECORDS SUMMARY | 2025-05-08 16:09 | XMS_ITS | Encounter Summary ---
Author Organization [employer] Address [address] [place] [address] Care Team Providers Care Non Profit Job Titles Name Role Phone Ernie Bertrand MD Primary Care Provider [phone] Reason for Visit * Reason Onset Date Comments Echo 06/13/2024 Encounter Details Date Type Department Care Team (Late st Contact Info) Description 06/13/2024 Telephone [facility] Cardiology [address] [address] Michael Gutierres DO [address] [place] [address] Echo Social History Tobacco Use [...] place to sleep or slept in a assisted (including now)? 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 * Telephone Encounter - Michelinelucinda Leon - 06/13/2024 2:59 PM EDT Next Visit: Visit date not found Last Visit: Visit date not found Caller Message: Patient called in regards to ECHO he was sheduled for on 06/13/2024. Per him and his primary cardiac provider he already had an echo and they are unsure why the appointment remained with [facility]. Is follow up action needed? No Explain: Just FYI Caller Name: Emmett Relation to patient: Self Best Call Back OK to leave message on voicemail: N/A documented in this encounter Plan of Treatment Upcoming Encounters Date Type Department Care Team (Late st Contact Info) Description 05/11/2025 9:00 AM EDT Office Visit [facility] Cardiology - [place] [address] [place] [address] Michael Alva MD [address] [place] [address] documented as of this encounter Visit Diagnoses Not on filedocumented in this encounter Care Teams Non Profit Job Titles Relationship Specialty Start Date End Date Ernie Bertrand MD [address] [place] [address] PCP - General Adolescent Medicine 01/05/24 documented as of this encounter
[2025-05-08] MEDS: GABAPENTIN 300MG CAPSULE 300 MG PO (20:32)
[2025-05-08] MEDS: PANTOPRAZOLE 40MG TABLET 40 MG PO (20:32)
[2025-05-09] VITALS (18 sets, daily range): BP systolic 100–127; BP diastolic 59–79; PULSE 63–105; RESP 16–20; TEMP 36.4–37.1; O2SAT 88–97; BMI 29.6
[2025-05-09] MEDS: PIPERACILLIN/TAZO 4.5 GM in 0.9 % SODIUM CHLORIDE 100 ML IV ×4 (02:22→21:42)
--- NOTE | 2025-05-09 03:39 | PC.NURSE ---
Pt AOx4, pleasant. Has continually denied abd pain throughout shift. Receiving IV antibiotics. NPO since 0000. Resting in bed with eyes open. Respirations even and unlabored. Bed is low, locked, and call light is in reach.
[2025-05-09 06:21] LABS: Basophils % 0.4 % (0.1-2.0); Eosinophils # 0.3 Kmm3 (0.0-0.4); Eosinophils % 3.6 % (0.1-12.0); Hematocrit 45.5 % (42.0-52.0); Hemoglobin 14.7 g/dL (14.1-18.0); Immature Granulocytes # 0.02 10^3uL; Immature Granulocytes % 0.3 %; Lymphocytes # 1.7 K/mm3 (0.7-4.5); Lymphocytes % 24.9 % (10-50); Mean Corpuscular HGB Conc 32.3 g/dL (31.8-35.4); Mean Corpuscular Hemoglobin 33.9 pg (27.0-31.2); Mean Corpuscular Volume 105.1 fl (80-94); Mean Platelet Volume 9.8 fl (7.4-10.4); Monocytes # 0.5 K/mm3 (0.1-1.0); Monocytes % 7.7 % (1.7-9.3); Neutrophils # 4.3 K/mm3 (1.8-7.8); Neutrophils % 63.1 % (37.0-80.0); Nucleated Red Blood Cells # 0 10^3/uL; Nucleated Red Blood Cells % 0 %; Platelet Count 212 K/mm3 (142-424); Red Blood Count 4.33 M/mm3 (4.60-6.20); Red Cell Distribution Width 13.5 % (11.5-17.5); Red Cell Distribution Width-SD 53.1 fL; White Blood Count 6.9 K/mm3 (4.8-10.8)
[2025-05-09 06:44] LABS: Albumin Level 3.3 g/dl (3.5-5.0); Chloride 107 mmol/L (98-107); Potassium 4.2 mmoL/L (3.5-5.1); Sodium 138 mmol/L (136-145)
[2025-05-09 06:47] LABS: Alanine Aminotransferase 67 U/L (12-78); Albumin/Globulin Ratio 1.1 (1.1-1.8); Alkaline Phosphatase 173 U/L (38-126); Anion Gap 6.2 mEq/L (5-15); Aspartate Amino Transferase 60 U/L (17-59); Bilirubin,Total 1.6 mg/dl (0.2-1.3); Blood Urea Nitrogen 12 mg/dl (9-20); Carbon Dioxide 29 mmol/L (22.0-30.0); Creatinine Clearance Estimated 91 mL/min (50-200); Estimated Glomerular Filt Rate 69 ml/min (>60); GFR (African American) 83 ML/MIN (>60); Globulin 3.1 g/dL (1.3-3.2); Total Protein,Serum 6.4 g/dl (6.3-8.2)
[2025-05-09 06:48] LABS: Calcium 8.7 mg/dl (8.4-10.2); Glucose 69 mg/dl (74-100); Magnesium 1.8 mg/dl (1.6-2.3)
--- NOTE | 2025-05-09 07:47 | EXP.SURG.PN ---
Subjective Patient reports: no new complaints Narrative: Patient feels well at this time with no complaints Exam Data for Last 24 hours Vital signs and Labs for Last 24 Hours: Temp Pulse Resp BP Pulse Ox O2 Del Method 97.9 F 69 18 102/59 L 94 L Room Air 05/09/25 04:00 05/09/25 04:00 05/09/25 04:00 05/09/25 04:00 05/09/25 04:00 05/09/25 06:27 Laboratory Results - last 24 hr 05/09/25 05:03: WBC 6.9, RBC 4.33 L, Hgb 14.7, Hct 45.5, MCV 105.1 H, MCH 33.9 H, MCHC 32.3, RDW 13.5, Plt Count 212, MPV 9.8, Neut % (Auto) 63.1, Lymph % (Auto) 24.9, [place] % (Auto) 7.7, Eos % (Auto) 3.6, Baso % (Auto) 0.4, Neut # (Auto) 4.3, Lymph # (Auto) 1.7, [place] # (Auto) 0.5, Eos # (Auto) 0.3, Baso # (Auto) 0.0, Sodium 138, Potassium 4.2, Chloride 107, Carbon Dioxide 29, Anion Gap 6.2, BUN 12 D, Creatinine 1.10 D, Estimated Creat Clear 91, Estimated GFR 69, Est GFR ( Amer) 83 D, Glucose 69 L D, Calcium 8.7, Magnesium 1.8, Total Bilirubin 1.6 H, AST 60 H D, ALT 67, Alkaline Phosphatase 173 H, Total Protein 6.4, Albumin 3.3 L, Globulin 3.1, Albumin/Globulin Ratio 1.1 I & O for Last 24 hours: Intake & Output 05/06/25 05/07/25 05/08/25 05/09/25 11:59 11:59 11:59 11:59 Intake Total 420 / 420 Output Total 0 / 0 300 / 300 Balance 0 / 0 120 / 120 Weight 192 lb 195 lb 6.4 oz *Routine Abdominal Exam Abdominal: Present soft; Absent tenderness Progress Note: A&P Assessment and plan (1) Heart failure, unspecified: Status: Acute (2) Paroxysmal atrial fibrillation: Status: Acute (3) Right upper quadrant abdominal pain: Status: Acute Assessment and plan: Probable improving cholecystitis with possible transient choledocholithiasis. MRCP revealed no evidence of common duct stone and LFTs improving. Possibly proceed with cholecystectomy (4) LBBB (left bundle branch block): Status: Acute (5) Lymphedema of lower extremity: Status: Acute
[2025-05-09] MEDS: GABAPENTIN 300MG CAPSULE 300 MG PO ×2 (08:48→21:42)
--- NOTE | 2025-05-09 10:40 | P.PNANES_ITS ---
[facility] Disclaimer: The information contained in this section may have been updated after the patient was seen, as this information can be updated by other users. Medical History Hyperlipidemia Diabetes mellitus, type 2 Congestive heart failure Social History Smoking Status: Current every day smoker alcohol intake: never substance use type: denies use current occupational status: other Travel in the last 8 weeks?: None [facility] Anesthesia Checklist Patient Identification Patient Identification: Arm Band Structural Data Admitted From: Inpatient Planned Operative Procedure/s: Laparoscopic Cholecystectomy with Cholangiogram Consent for Planned Operative Procedure(s) Verified: Yes Verified Documents: Surgical Consent and History and Physical NPO Status Verified Time NPO: 00:00 Additional verifications Anesthesia Reactions: No Airway Assessment Mallampati Score:: Class II C-Spine Mobility Assessed: Yes TMJ Mobility Assessed: Yes Dentition: Good Dentition Neurological Assessment Level of Consciousness: Awake, Alert and Appropriate Anesthesia Plan Anesthesia Risk discussed: Yes Anesthesia Plan: Verified ASA Class: III Anesthesia Type: General
[2025-05-09 11:34] LABS: POC Glucose,Bedside 75 (70-110)
[2025-05-09] MEDS: LACTATED RINGERS 1000ML 1,000 ML 25 ML IV (12:32)
[2025-05-09] MEDS: 0.9 % SODIUM CHLORIDE 100 ML 25 ML IV (13:10)
[2025-05-09] MEDS: CEFAZOLIN 1GM VIAL 2 GM (13:10)
[2025-05-09] MEDS: LIDOCAINE 1% 20ML MDV 20 ML (13:30)
[2025-05-09] MEDS: SODIUM CHLORIDE IRRIG SOLUTION 3,000 ML 25 ML IR (13:30)
[2025-05-09] MEDS: 0.9 % SODIUM CHLORIDE 50 ML 25 ML IV (13:30)
[2025-05-09] MEDS: ROPIVACAINE 0.5% 30ML VIAL 150 MG (13:30)
--- NOTE | 2025-05-09 14:49 | EXP.OP.NOTE ---
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 He underwent workup and was found to have above normal bilirubin at 1.8. He underwent evaluation for cardiac etiology which was unremarkable. Arrangements were made for outpatient management at that time. He presented back to the emergency department with similar symptoms but now severe in the right upper abdomen and under his right ribs rated as a 10 out of 10. He was found to have a bilirubin of 3.3. He has an AST of 107 and ALT of 99 and alkaline phosphatase 195. He was admitted for inpatient management and gastroenterology and surgical consultations were ordered. Gallbladder ultrasound appears to show thick-walled gallbladder with pericholecystic fluid and stones. Common bile duct measures 6 mm. Due to rapid improvement in his liver function tests he underwent MRCP as opposed to ERCP. This revealed no evidence of any choledocholithiasis. He had a distended gallbladder with gallstones. Given the fact that this appeared to be acute cholecystitis without presumed choledocholithiasis plan was made to proceed with cholecystectomy. Given the concern for possible sludge within the bile duct and due to his initially abnormal liver function tests plan was made for possible intraoperative cholangiogram if feasible and safe. Operative findings:: He had mild fatty infiltration of the liver. He had a distended inflamed gallbladder with thick sludge. Gallbladder was not terribly thickened and was quite friable. There was acute pericholecystic edema. Operative note:: Consent was obtained patient was taken the operating room. He was given preoperative intravenous antibiotics. In the operating room he was placed in a supine position. General anesthesia was induced via endotracheal tube. Abdomen was prepped and draped in the standard surgical fashion. Subumbilical skin incision was made and while performing abdominal wall lift Veress needle was inserted. CO2 pneumoperitoneum was achieved to 15 mmHg. 11 mm optical trocar was inserted at the umbilicus. He was found to have acutely inflamed appearing gallbladder. He was positioned in reverse Trendelenburg left side down. A couple 5 mm trocars were inserted in the right upper abdomen. 11 mm trocar was inserted in the epigastrium. Gallbladder was grasped retracted anteriorly over the dome of the liver. Infundibulum was grasped and retracted anterior laterally. There is appreciable fatty infiltration around the neck of the gallbladder and Marley's pouch. Careful blunt dissection was carried out bluntly incising the visceral peritoneum and dissecting the fatty tissues to expose the cystic structures. The gallbladder was quite inflamed but it was not thickened and thus rather friable. There was unavoidable tear in the neck of the gallbladder with some thick bilious sludge which was suctioned free. Further dissection was carried out clearly identifying the cystic duct and cystic artery. Given the friable nature of the tissues it was felt unsafe to potentially proceed with intraoperative cholangiogram due to potential duct injury. Therefore the cystic duct was isolated, multiply clipped, and sharply divided. Cystic artery was carefully coagulated with a's ultrasonic robotic tess and divided. Gallbladder was dissected free from the liver in a retrograde fashion using a's ultrasonic harmonic tess. Gallbladder was placed within an Endo Catch retrieval device and removed from the peritoneal cavity via the umbilical trocar site which required some minor extension of the fascial incision for delivery of the distended gallbladder. Gallbladder fossa was inspected for hemostasis. Some use of laparoscopic electrocautery was used for assurance of hemostasis. Irrigation and suctioning was performed until clear of the gallbladder fossa and perihepatic space. Trocars were removed the CO2 pneumoperitoneum was evacuated. Fascia at the umbilicus was closed with multiple interrupted 0 Vicryl sutures. Local anesthetic was infiltrated skin incision was closed with 4-0 Monocryl subcuticular fashion. 5 mm trocar epidermis was closed with interrupted 5-0 plain gut horizontal mattress sutures. Steri-Strips and dressings were applied. Condition: stable Disposition: PACU Complications:: None immediately apparent
--- NOTE | 2025-05-09 15:03 | EXP.ANES.I ---
[facility] Anesthesia Record Part I Anesthesia Record I Intake, IV Amount: 800 Hydration: Adequate Estimated blood loss (mL): 15 Urine output (mL): 0 Blood Products used (#): none Blood Pressure: 117/66 SaO2: 96 Pulse Rate: 103 Airway Patency: Patent Respiratory Rate: 16 Temperature: 97.8 F Patient is:: Drowsy and Stable Stable to PACU at:: 14:50
[2025-05-09] MEDS: KETOROLAC 30MG/ML VIAL 30 MG IV (15:20)
--- NOTE | 2025-05-09 15:58 | PC.NURSE ---
VS stable, patient tolerating coffee after procedure. No pain reported. Lung sounds clear.
[2025-05-09] MEDS: PANTOPRAZOLE 40MG TABLET 40 MG PO (21:42)
[2025-05-09] MEDS: MORPHINE 4MG/ML SYRINGE 2 MG IV (21:48)
--- NOTE | 2025-05-09 22:12 | EXP.ACUTE.PN ---
Subjective *Date: 05/09/25 *Time: 22:12 Interval history: Feeling better today. No nausea or vomiting. Abdominal pain improved. Labs showing some improvement. Surgery took patient for cholecystectomy today. Medical Exam Vital signs and Labs for Last 24 Hours: Vital Signs Temp Pulse Pulse Resp BP BP Pulse Ox 05/09/25 20:00 98.7 F 81 18 100/62 L 93 L 05/09/25 18:52 05/09/25 18:00 88 20 106/62 L 90 L 05/09/25 17:30 88 18 105/62 L 90 L 05/09/25 17:00 86 20 109/60 L 90 L 05/09/25 17:00 05/09/25 16:30 89 20 108/65 L 90 L 05/09/25 16:15 92 H 20 105/66 L 92 L 05/09/25 16:00 89 20 108/65 L 91 L 05/09/25 15:45 98.2 F 87 18 114/67 92 L 05/09/25 15:30 98.1 F 90 18 122/70 88 L 05/09/25 15:19 97.8 F 91 H 16 126/78 92 L 05/09/25 15:10 97.8 F 97 H 16 127/79 91 L 05/09/25 15:05 97.8 F 103 H 16 117/66 05/09/25 15:00 97.8 F 98 H 16 121/64 94 L 05/09/25 14:50 97.8 F 105 H 16 117/66 91 L 05/09/25 12:13 97.6 F 85 16 123/67 90 L 05/09/25 11:04 05/09/25 09:04 05/09/25 08:20 05/09/25 08:00 97.6 F 85 16 123/67 90 L 05/09/25 06:27 05/09/25 05:00 05/09/25 04:00 97.9 F 69 18 102/59 L 94 L 05/09/25 03:00 05/09/25 01:00 05/09/25 00:00 97.8 F 63 18 115/61 97 05/08/25 23:00 O2 Del Method O2 Flow Rate 05/09/25 20:00 Room Air 05/09/25 18:52 Room Air 05/09/25 18:00 Nasal Cannula 2 05/09/25 17:30 Nasal Cannula 2 05/09/25 17:00 Nasal Cannula 2 05/09/25 17:00 Room Air 05/09/25 16:30 Nasal Cannula 2 05/09/25 16:15 Nasal Cannula 2 05/09/25 16:00 Nasal Cannula 2 05/09/25 15:45 Nasal Cannula 2 05/09/25 15:30 Room Air 05/09/25 15:19 Nasal Cannula 3 05/09/25 15:10 Nasal Cannula 3 05/09/25 15:05 05/09/25 15:00 Nasal Cannula 3 05/09/25 14:50 Nasal Cannula 4 05/09/25 12:13 Room Air 05/09/25 11:04 Room Air 05/09/25 09:04 Room Air 05/09/25 08:20 Room Air 05/09/25 08:00 Room Air 05/09/25 06:27 Room Air 05/09/25 05:00 Room Air 05/09/25 04:00 Room Air 05/09/25 03:00 Room Air 05/09/25 01:00 Room Air 05/09/25 00:00 Room Air 05/08/25 23:00 Room Air Intake and Output 05/09/25 05/09/25 05/09/25 07:59 15:59 23:59 Intake Total 200 / 1200 800 / 1200 200 / 1200 Balance 200 / 1200 800 / 1200 200 / 1200 Intake: Intake, Total IV Amount 200 / 1200 800 / 1200 200 / 1200 Piperacillin/Tazo 4.5 gm In 0.9 200 / 400 200 / 400 % Sodium Chloride 100 ml @ 200 mls/hr IV Q6H [facility] Rx#:[id number] Other: Weight 88.632 kg Patient Weight 05/09/25 23:59 Weight 88.632 kg Laboratory Results - last 24 hr 05/09/25 05:03: WBC 6.9, RBC 4.33 L, Hgb 14.7, Hct 45.5, MCV 105.1 H, MCH 33.9 H, MCHC 32.3, RDW 13.5, Plt Count 212, MPV 9.8, Neut % (Auto) 63.1, Lymph % (Auto) 24.9, [place] % (Auto) 7.7, Eos % (Auto) 3.6, Baso % (Auto) 0.4, Neut # (Auto) 4.3, Lymph # (Auto) 1.7, [place] # (Auto) 0.5, Eos # (Auto) 0.3, Baso # (Auto) 0.0, Sodium 138, Potassium 4.2, Chloride 107, Carbon Dioxide 29, Anion Gap 6.2, BUN 12 D, Creatinine 1.10 D, Estimated Creat Clear 91, Estimated GFR 69, Est GFR ( Amer) 83 D, Glucose 69 L D, Calcium 8.7, Magnesium 1.8, Total Bilirubin 1.6 H, AST 60 H D, ALT 67, Alkaline Phosphatase 173 H, Total Protein 6.4, Albumin 3.3 L, Globulin 3.1, Albumin/Globulin Ratio 1.1 05/09/25 11:26: POC Glucose 75 I & O for Labs for Last 24 Hours: Intake & Output 05/06/25 05/07/25 05/08/25 05/09/25 23:59 23:59 23:59 23:59 Intake Total 220 / 220 1200 / 1200 Output Total 300 / 300 Balance -80 / -80 1200 / 1200 Weight 87.09 kg 88.632 kg Constitutional: Present no acute distress, obese and cooperative Head: Present atraumatic and normocephalic Respiratory: Present normal respiratory effort; Absent rhonchi, wheezes or crackles Cardiac: Present Reg Rate and Rhythm GI: Present soft and normal bowel sounds; Absent distention or tenderness Extremities: Present normal inspection and full ROM Skin: Present intact; Absent erythema Neuro: Present Grossly Intact, alert, awake, oriented x 3 and moves all extremities Assessment and Plan *Assessment and plan (1) Cholecystitis, acute with cholelithiasis: Status: Acute Qualifiers: Biliary obstruction: with biliary obstruction Qualified Code(s): K80.01 - Calculus of gallbladder with acute cholecystitis with obstruction Category: Medical Code(s): K80.00 - Calculus of gallbladder with acute cholecystitis without obstruction (2) Hyperbilirubinemia: Status: Acute Category: Medical Code(s): E80.6 - Other disorders of bilirubin metabolism (3) Transaminitis: Status: Acute Category: Medical Code(s): R74.01 - Elevation of levels of liver transaminase levels (4) LBBB (left bundle branch block): Status: Acute Category: Medical Code(s): I44.7 - Left bundle-branch block, unspecified Plan 69 male who presented with right upper quadrant pain. Found to have acute cholecystitis. Discussed case with surgery this morning, going for cholecystectomy. Will monitor overnight with anticipation of discharge tomorrow. Problems addressed as follows: Acute cholecystitis Choledocholithiasis - MRCP obtained that did not show any ductal dilatation or obstruction. Discussed case with surgery this morning, going for cholecystectomy. Hyperbilirubinemia Transaminitis - Labs somewhat improved this morning. Bilirubin 1.6, AST 60, ALT 67, alk phos 173. Improving. Repeat CBC, CMP, magnesium in morning. Left bundle branch block Reported history of CHF Paroxysmal A-fib - Cardiology consulted, discussed case this morning. - Recommend continuing SGLT2 for GDMT - Echo obtained showing normal LV function. Continue current regimen. No adjustments to medication regimen at this time. Follow-up with cardiology as an outpatient as needed. - Continue to hold anticoagulation pending surgery. Will resume in the morning. Holding statin due to elevation in liver enzymes Kidney function remains normal BUN 12, creatinine 1.1. Potassium 4.2. White count normal at 6.9 Full code N.p.o. pending surgery
[2025-05-10] VITALS: BP 135/74; PULSE 80; RESP 15; TEMP 36.8; O2SAT 92
[2025-05-10 04:00] VITALS: BP 138/77; PULSE 78; RESP 16; TEMP 37.1; O2SAT 93; BMI 29.7
[2025-05-10] MEDS: PIPERACILLIN/TAZO 4.5 GM in 0.9 % SODIUM CHLORIDE 100 ML IV ×2 (04:20→09:41)
[2025-05-10] MEDS: MORPHINE 4MG/ML SYRINGE 2 MG IV (04:30)
[2025-05-10] MEDS: ACETAMINOPHEN 325MG TAB 650 MG PO (05:07)
[2025-05-10 06:35] LABS: Basophils % 0.5 % (0.1-2.0); Eosinophils # 0.3 Kmm3 (0.0-0.4); Eosinophils % 4.3 % (0.1-12.0); Hematocrit 42.6 % (42.0-52.0); Hemoglobin 14.1 g/dL (14.1-18.0); Immature Granulocytes # 0.01 10^3uL; Immature Granulocytes % 0.2 %; Lymphocytes # 1.8 K/mm3 (0.7-4.5); Mean Corpuscular HGB Conc 33.1 g/dL (31.8-35.4); Mean Corpuscular Hemoglobin 34.1 pg (27.0-31.2); Mean Corpuscular Volume 103.1 fl (80-94); Mean Platelet Volume 9.2 fl (7.4-10.4); Monocytes # 0.7 K/mm3 (0.1-1.0); Monocytes % 10.6 % (1.7-9.3); Neutrophils # 3.6 K/mm3 (1.8-7.8); Neutrophils % 56.4 % (37.0-80.0); Nucleated Red Blood Cells # 0 10^3/uL; Nucleated Red Blood Cells % 0 %; Platelet Count 211 K/mm3 (142-424); Red Blood Count 4.13 M/mm3 (4.60-6.20); Red Cell Distribution Width 13.4 % (11.5-17.5); Red Cell Distribution Width-SD 51.1 fL; White Blood Count 6.4 K/mm3 (4.8-10.8)
[2025-05-10 06:48] LABS: Chloride 104 mmol/L (98-107)
[2025-05-10 06:49] LABS: Albumin Level 3.4 g/dl (3.5-5.0); Potassium 3.6 mmoL/L (3.5-5.1); Sodium 134 mmol/L (136-145)
[2025-05-10 06:51] LABS: Blood Urea Nitrogen 9 mg/dl (9-20); Creatinine Clearance Estimated 100 mL/min (50-200); Estimated Glomerular Filt Rate 76 ml/min (>60); GFR (African American) 93 ML/MIN (>60)
[2025-05-10 06:52] LABS: Alanine Aminotransferase 47 U/L (12-78); Albumin/Globulin Ratio 1.1 (1.1-1.8); Alkaline Phosphatase 147 U/L (38-126); Anion Gap 7.6 mEq/L (5-15); Aspartate Amino Transferase 42 U/L (17-59); Bilirubin,Total 1.4 mg/dl (0.2-1.3); Calcium 8.3 mg/dl (8.4-10.2); Carbon Dioxide 26 mmol/L (22.0-30.0); Globulin 3.2 g/dL (1.3-3.2); Glucose 130 mg/dl (74-100); Total Protein,Serum 6.6 g/dl (6.3-8.2)
[2025-05-10 06:54] LABS: Magnesium 1.6 mg/dl (1.6-2.3)
[2025-05-10 08:00] VITALS: BP 137/76; PULSE 71; RESP 17; TEMP 36.4; O2SAT 91
--- NOTE | 2025-05-10 08:29 | EXP.DC.SUM ---
General Admission date:: 05/08/25 Discharge date: 05/10/25 HPI HPI HPI: Patient is a 59-year-old male who had presented to the emergency department in the change management manager hours of 05/07/2025 with severe epigastric pain with radiation into the chest. He underwent workup and was found to have above normal bilirubin at 1.8. He underwent evaluation for cardiac etiology which was unremarkable. Arrangements were made for outpatient management at that time. He presented back to the emergency department with similar symptoms but now severe in the right upper abdomen and under his right ribs rated as a 10 out of 10. He was found to have a bilirubin of 3.3. He has an AST of 107 and ALT of 99 and alkaline phosphatase 195. He was admitted for inpatient management and gastroenterology and surgical consultations were ordered. Gastroenterology is planning MRCP with possible ERCP. Gallbladder ultrasound appears to show thick-walled gallbladder with pericholecystic fluid and stones. Common bile duct measures 6 mm. Hospital Course Hospital Course Hospital Course: 69 male who presented with right upper quadrant pain. Found to have acute cholecystitis. Surgery consulted and assisted with management along with GI. Tolerated cholecystectomy well. Able to advance diet. Stable discharge home with close outpatient follow-up. Problems addressed as follows: Acute cholecystitis Choledocholithiasis - Surgery and GI were both consulted to assist with care. GI recommended MRCP that was obtained and did not show any ductal dilatation or obstruction. Discussed case with surgery, decision to proceed with cholecystectomy. Cholecystectomy performed on 05/09. Tolerated procedure well. Patient's diet advanced thereafter with good tolerance. Pain resolved. Labs normal on morning of discharge. Follow-up with surgery as an outpatient. Hyperbilirubinemia Transaminitis - Labs elevated on admission. Showed improvement after cholecystectomy. No further signs of obstruction. Left bundle branch block Reported history of CHF Paroxysmal A-fib - Cardiology consulted, discussed case during admission. Recommended GDMT. Patient initiated on SGLT2. Echo obtained showing normal LV function. Continue current regimen. No adjustments to medication regimen at this time. Follow-up with cardiology as an outpatient as needed. Anticoagulation held prior to surgery. Resumed after cholecystectomy. Holding statin due to elevation in liver enzymes. Consider resuming after discharge if repeat labs normalize Kidney function remains normal BUN 12, creatinine 1.1. Potassium 4.2. White count normal at 6.9 Exam Data for Last 24 hours Vital signs and Labs for Last 24 Hours: Temp Pulse Resp BP Pulse Ox O2 Del Method O2 Flow Rate 98.7 F 78 16 138/77 93 L Room Air 2 05/10/25 04:00 05/10/25 04:00 05/10/25 04:00 05/10/25 04:00 05/10/25 04:00 05/10/25 07:00 05/09/25 18:00 Laboratory Results - last 24 hr 05/09/25 11:26: POC Glucose 75 05/10/25 06:23: WBC 6.4, RBC 4.13 L, Hgb 14.1, Hct 42.6, MCV 103.1 H, MCH 34.1 H, MCHC 33.1, RDW 13.4, Plt Count 211, MPV 9.2, Neut % (Auto) 56.4, Lymph % (Auto) 28.0, Shannon % (Auto) 10.6 H, Eos % (Auto) 4.3, Baso % (Auto) 0.5, Neut # (Auto) 3.6, Lymph # (Auto) 1.8, Shannon # (Auto) 0.7, Eos # (Auto) 0.3, Baso # (Auto) 0.0, Sodium 134 L, Potassium 3.6, Chloride 104, Carbon Dioxide 26, Anion Gap 7.6, BUN 9, Creatinine 1.00, Estimated Creat Clear 100, Estimated GFR 76, Est GFR ( Amer) 93, Glucose 130 H, Calcium 8.3 L, Magnesium 1.6 D, Total Bilirubin 1.4 H, AST 42 D, ALT 47 D, Alkaline Phosphatase 147 H, Total Protein 6.6, Albumin 3.4 L, Globulin 3.2, Albumin/Globulin Ratio 1.1 I & O for Last 24 hours: Intake & Output 05/07/25 05/08/25 05/09/25 05/10/25 23:59 23:59 23:59 23:59 Intake Total 220 / 220 1540 / 1540 Output Total 300 / 300 550 / 550 Balance -80 / -80 1540 / 1540 -550 / -550 Weight 87.09 kg 88.632 kg 88.949 kg Constitutional Constitutional: no acute distress, obese and cooperative *Routine HEENT Exam Head: Present normocephalic Eye: Present EOMI and PERRL ENT: Present mucous membranes moist *Routine Neck Exam Neck: Present supple; Absent lymphadenopathy *Routine Respiratory Exam Respiratory: Present CTA bilaterally *Routine Cardiovascular Exam Cardiovascular: Present RRR *Routine Abdominal Exam Abdominal: Present soft, normoactive bowel sounds and tenderness (interval improvement, TTP over surgical sites); Absent distended *Routine Rectal Exam Patient deferred: visual exam *Routine Exam Patient deferred: penile exam *Routine Extremities Exam Extremities: Absent cyanosis, clubbing or edema *Routine Skin Exam Skin: Present warm; Absent rash *Routine Neurological Exam Neurological: Present alert, oriented X3 and moving all extremities; Absent altered mental status Results Data Completed and Pending Labs on day of discharge: Labs from last 24 hours 05/10/25 05/09/25 06:23 11:26 WBC 6.4 RBC 4.13 L Hgb 14.1 Hct 42.6 MCV 103.1 H MCH 34.1 H MCHC 33.1 RDW 13.4 Plt Count 211 MPV 9.2 Neut % (Auto) 56.4 Lymph % (Auto) 28.0 Shannon % (Auto) 10.6 H Eos % (Auto) 4.3 Baso % (Auto) 0.5 Neut # (Auto) 3.6 Lymph # (Auto) 1.8 Shannon # (Auto) 0.7 Eos # (Auto) 0.3 Baso # (Auto) 0.0 Sodium 134 L Potassium 3.6 Chloride 104 Carbon Dioxide 26 Anion Gap 7.6 BUN 9 Creatinine 1.00 Estimated Creat Clear 100 Estimated GFR 76 Est GFR ( Amer) 93 Glucose 130 H POC Glucose 75 Calcium 8.3 L Magnesium 1.6 D Total Bilirubin 1.4 H AST 42 D ALT 47 D Alkaline Phosphatase 147 H Total Protein 6.6 Albumin 3.4 L Globulin 3.2 Albumin/Globulin Ratio 1.1 DS: Diagnosis Discharge Diagnosis (1) Cholecystitis, acute with cholelithiasis: Status: Acute Code(s): K80.00 - Calculus of gallbladder with acute cholecystitis without obstruction Qualifiers: Biliary obstruction: with biliary obstruction Qualified Code(s): K80.01 - Calculus of gallbladder with acute cholecystitis with obstruction (2) Hyperbilirubinemia: Status: Acute Code(s): E80.6 - Other disorders of bilirubin metabolism (3) Transaminitis: Status: Acute Code(s): R74.01 - Elevation of levels of liver transaminase levels (4) LBBB (left bundle branch block): Status: Acute Code(s): I44.7 - Left bundle-branch block, unspecified Meds Home Medications and Allergies Home Medications ?Medication ?Instructions ?Recorded ?Confirmed ?Type atorvastatin 20 mg tablet 20 mg PO DAILY 05/08/25 05/08/25 History empagliflozin 25 mg tablet 25 mg PO DAILY 05/08/25 05/08/25 History (Jardiance) gabapentin 300 mg capsule 300 mg PO BID 05/08/25 05/08/25 History rivaroxaban 20 mg tablet (Xarelto) 20 mg PO DAILY 05/08/25 05/08/25 History hydrocodone 5 mg-acetaminophen 325 1 tab PO Q6H PRN pain #11 tabs 05/10/25 Rx mg tablet New Prescriptions to Start Prescriptions: hydrocodone-acetaminophen Lowell Woods Allergies Allergy/AdvReac Type Severity Reaction Status Date / Time No Known Allergies Allergy Verified 05/07/25 02:44 Discharge Plan Disposition Patient Disposition: Home, Self-Care Condition: Fair Discharge Order Discharge Orders: Discharge Order (Routine); Ordered 05/10/25 Ordered By: Lowell Woods Follow up Plan Follow up with: Paulino Pop MD [Staff Physician, General Surgery] - 05/25/25 9:30 am Ernie Bertrand MD [Primary Care Provider, Internal Medicine] - 05/15/25 11:30 am Roby Cordova MD [Staff Physician, Cardiology] - 06/05/25 1:45 pm Prescriptions/Medication Reconciliation: New hydrocodone-acetaminophen 5-325 mg tablet 1 tab PO Q6H PRN (Reason: pain) Qty: 11 0RF Continued atorvastatin 20 mg tablet 20 mg PO DAILY Xarelto 20 mg tablet 20 mg PO DAILY Jardiance 25 mg tablet 25 mg PO DAILY gabapentin 300 mg capsule 300 mg PO BID Problem Reconciliation Problems Reviewed?: Yes Patient Discharge Instructions ACTIVITY: Continue current activity DIET: continue same diet and advance to your usual diet Patient Instructions: DI for Surgical Site Infection, DI for Cholecystitis, DI for Laparoscopic Cholecystectomy Print Language: Occitan Providers Primary Care Provider: Ernie Bertrand Admit Provider: Chris Izaguirre Attending Provider: Chris Izaguirre
[2025-05-10 08:30] VITALS: O2SAT 93
--- NOTE | 2025-05-10 08:51 | P.PN_ITS ---
Subjective Patient reports: feels better Exam Data for Last 24 hours Vital signs and Labs for Last 24 Hours: Temp Pulse Resp BP Pulse Ox O2 Del Method O2 Flow Rate 98.7 F 78 16 138/77 93 L Room Air 2 05/10/25 04:00 05/10/25 04:00 05/10/25 04:00 05/10/25 04:00 05/10/25 04:00 05/10/25 07:00 05/09/25 18:00 Laboratory Results - last 24 hr 05/09/25 11:26: POC Glucose 75 05/10/25 06:23: WBC 6.4, RBC 4.13 L, Hgb 14.1, Hct 42.6, MCV 103.1 H, MCH 34.1 H , MCHC 33.1, RDW 13.4, Plt Count 211, MPV 9.2, Neut % (Auto) 56.4, Lymph % (Auto) 28.0, Snyder % (Auto) 10.6 H, Eos % (Auto) 4.3, Baso % (Auto) 0.5, Neut # (Auto) 3.6, Lymph # (Auto) 1.8, Snyder # (Auto) 0.7, Eos # (Auto) 0.3, Baso # (Auto) 0.0, Sodium 134 L, Potassium 3.6, Chloride 104, Carbon Dioxide 26, Anion Gap 7.6, BUN 9, Creatinine 1.00, Estimated Creat Clear 100, Estimated GFR 76, Est GFR ( Amer) 93, Glucose 130 H, Calcium 8.3 L, Magnesium 1.6 D, Total Bilirubin 1.4 H, AST 42 D, ALT 47 D, Alkaline Phosphatase 147 H, Total Protein 6.6, Albumin 3.4 L, Globulin 3.2, Albumin/Globulin Ratio 1.1 I & O for Last 24 hours: Intake & Output 05/07/25 05/08/25 05/09/25 05/10/25 11:59 11:59 11:59 11:59 Intake Total 420 / 420 1340 / 1340 Output Total 0 / 0 300 / 300 550 / 550 Balance 0 / 0 120 / 120 790 / 790 Weight 192 lb 195 lb 6.4 oz 196 lb 1.6 oz Constitutional Constitutional: no acute distress *Routine Respiratory Exam Respiratory: Absent respiratory distress *Routine Cardiovascular Exam Cardiovascular: Absent tachycardia *Routine Abdominal Exam Comments: Dressings in place. No spreading cellulitis. Progress Note: A&P Assessment and plan (1) Cholecystitis, acute with cholelithiasis: Status: Acute Assessment and plan: Overall, doing well status post laparoscopic cholecystectomy. Okay from surgical standpoint for discharge home with outpatient follow-up (2) Hyperbilirubinemia: Status: Acute Assessment and plan: Resolving (3) Transaminitis: Status: Acute
[2025-05-10] MEDS: GABAPENTIN 300MG CAPSULE 300 MG PO (09:41)
[2025-05-10] MEDS: MAGNESIUM SULFATE IN WATER 2 GM/50 ML PIGGYBACK IV (09:41)
--- NOTE | 2025-05-11 09:01 | EXP.ANES.II ---
[facility] Anesthesia Record Part II Anesthesia Record Part II Discharge Time: 15:20 Destination: [facility] PACU nurse assessment reviewed?: Yes Patient Condition:: Good Anesthesia Complications:: None Swallowing reflex intact?: Yes Airway Patency: Patent Cyanosis?: No Blood Pressure: 126/78 SaO2: 92 Respiratory Rate: 16 Pulse Rate: 91 Temperature: 97.8 F Mental Status: Alert & Oriented Pain level:: 0 Nausea and/or vomitting:: None Intake, IV Amount: 1,500 Hydration: Adequate
[2025-05-11 09:03] VITALS: BP 126/78; PULSE 91; RESP 16; TEMP 36.6; O2SAT 92
--- NOTE | 2025-05-11 11:28 | SW/DCPLANNER ---
Spoke with patient on the phone. Patient stated that he is doing well. Patient stated that he is aware of his upcoming appointments. Patient stated that he was able to get his new medicine picked up from [facility]. Patient stated that he has no concerns or questions at this time. Ema Parson
== END 2025-05-10 12:24 | disposition home or self-care (01) | DRG 419 ==
LOC: ER 03:18 → 2ND 03:46
PROVIDERS: Internal Medicine Adolescent Medicine; Student in an Organized Health Care Education/Training Program; Surgery; Admitting Provider Student in an Organized Health Care Education/Training Program; Emergency Provider Emergency Medicine; PCP Internal Medicine Adolescent Medicine; Visit Provider Student in an Organized Health Care Education/Training Program
PROC: 0FT44ZZ Resection of Gallbladder, Percutaneous Endoscopic Approach (ICD-10-PCS; CPT 47563; principal; 2025-05-09 13:00)
DX: K80.00 Calculus of gallbladder with acute cholecystitis without obstruction (principal); I44.7 Left bundle-branch block, unspecified; E78.5 Hyperlipidemia, unspecified; E11.9 Type 2 diabetes mellitus without complications; F17.200 Nicotine dependence, unspecified, uncomplicated; I48.0 Paroxysmal atrial fibrillation; I89.0 Lymphedema, not elsewhere classified; K76.0 Fatty (change of) liver, not elsewhere classified; Z86.79 Personal history of other diseases of the circulatory system; Z79.899 Other long term (current) drug therapy; Z79.84 Long term (current) use of oral hypoglycemic drugs; Z79.01 Long term (current) use of anticoagulants
CPT/HCPCS: 36415; 74183; 76376; 76705; 80053; 80061; 82962; 83690; 83735; 84100; 85025; 85610; 85730; 86803; 87389; 93005; 93306; J1100; J1885; J2250; J2270; J2405; J2543; J3010; J3475; J7120

== ENCOUNTER 2025-07-12 14:54 | Outpatient (RCR) | payer OTHER, SELFPAY ==
--- NOTE | 2025-07-12 16:26 | HMH.PTOPWND ---
Rehab Outpt Wound Evaluation Rehab OP Wound Evaluation Start: 07/12/25 16:02 Freq: Status: Active Protocol: Document 07/12/25 16:02 ANOOP (Rec: 07/12/25 16:26 PHORARABELLA [id number]) E-signed By Devaughn Swartz, PT Subjective/History History History This is the initial PT wound care and lymphedema eval for Emmett Marquez, 59 yowm who presents with c/o L LE increased edema and chronic wounds. He reports condition has been present off and on for several years . He is well known to our clinic and his condition typically improves with consistent treatment. He reports pain in the L LE this date. He was recently hospitalized for CCY. He has PMH of CHF, DM, CVI, continues to smoke. Subjective Subjective Current pain in the L LE is 5/10, 2/4 TTP in the negrito- wound skin. Edema is 2+ pitting throughout the L lower leg with mild increased hyperkeratosis. Considerable hemosiderin staining noted to L lower leg. Wound Eval Wound Left Lower Anterior [place]ell Wound Type unknown etiology Is This a Chronic Yes Wound Wound Length (cm) 1.5 Wound Width (cm) 1.2 Wound Depth (cm) 0.3 Wound Bed Appearance Yellow Percentage of Slough 100 (%) Wound Margins Well Defined Description Surrounding Tissue [place] Appearance Edema Type Pitting Edema Degree 2+ Query Text:1+ Trace, Barely Detectable, Rebound 15-30 seconds 2+ Moderate, Slight Indentation, Rebound 10-20 seconds 3+ Deep, Deeper Indentation, Rebound > 30 seconds 4+ Very Deep, Rebound > 60 seconds Drainage Description Green Drainage Amount Small Drainage Odor No Odor Packing Type Specialty Absorptive Comment opticell Ag Primary Dressing Composite Comment optifoam gentle border lite Comment 2 layer compression wrap system Wound Debridement Gauze,Mechanical Method Wound Debridement Minimal Amount of Tissue Removed Dressing Change Tolerated Well Patient Tolerance Left Upper Lateral [place]ell Wound Type unknown etiology Is This a Chronic Yes Wound Wound Length (cm) 1.0 Wound Width (cm) 1.1 Wound Depth (cm) 0.2 Wound Bed Appearance Yellow Percentage of Slough 100 (%) Wound Margins Well Defined Description Surrounding Tissue [place] Appearance Edema Type Pitting Edema Degree 2+ Query Text:1+ Trace, Barely Detectable, Rebound 15-30 seconds 2+ Moderate, Slight Indentation, Rebound 10-20 seconds 3+ Deep, Deeper Indentation, Rebound > 30 seconds 4+ Very Deep, Rebound > 60 seconds Drainage Description Yellow Drainage Amount Small Drainage Odor No Odor Wound Topical Saline Irrigant Solution/Irrigant Packing Type Specialty Absorptive Comment opticell Ag Primary Dressing Composite Comment optifoam gentle border lite Comment 2 layer compression wrap system Wound Debridement Gauze,Mechanical Method Wound Debridement Minimal Amount of Tissue Removed Dressing Change Tolerated Well Patient Tolerance Negro-Solitario Wound Assessment Tool Assessment Wound size 1=Length x Width <4 sq cm Wound depth 4=Obscured by necrosis Wound edges 3=Well-defined, not attached to wound base Wound undermining 1=None present Necrotic tissue type 3=Loosely adherent yellow slough Necrotic tissue 5=75% to 100% of wound covered amount Exudate type 5=Purulent: thin or thick, opaque, garnett/yellow, withour without odor Exudate amount 3=Small Skin color 1=[place] or normal for ethnic group surrounding wound Peripheral tissue 5=Crepitus and/or pitting edema extends > or = 4 cm edema around wound Peripheral tissue 1=None present induration Granulation tissue 5=No granulation tissue present Epithelialization 5= < 25% wound covered Wound assessment 42 total score Wound Problems/Impairments Impairments Problems/ Palpation Tenderness,Impaired Endurance,Impaired Shower Impairmments /Bathing,Impaired Household Care,Impaired Recreational Activities,Increased Edema,Lymphedema Present,Wound Care Needs,Subjective C/O Pain,Impaired Self Care/Self Management Prognosis Comment Signs and symptoms consistent with combined L LE lymphedema and L chronic wounds. Skilled therapy is indicated to reduce overall wound area and decrease overall lymphedema in order to return pt to PLOF. Clinical Impression Consistent with Yes Diagnosis Wound Patient Goals Wound Patient Goals Wound Short Term In 4 wks pt will: Patient Goals 1) Reduce overall wound surface area by 25% 2) Decrease L LE edema to 1+ pitting edema 3) Decrease L LE circumferential measurements by 3 cm Wound Longterm In 8 wks pt will: Patient Goals 1) Reduce overall wound surface area by 75% 2) Decrease L LE edema to no pitting edema 3) Decrease L LE circumferential measurements by 10 cm 4) Decrease L LE pain to 2/10 5) be independent with donning/doffing compression garments. Outpatient Therapy Plan of Care Treatment Plan May Include Therapeutic Exercise Yes Including Home Exercise Program Manual Therapy Yes Techniques Neuromuscular Re- Yes education Therapeutic Yes Activities to Return to Previous Functional/Work Level ADL/Self Care Yes Education Ultrasound/ Yes Phonophoresis Orthotics/Bracing/ Yes Splinting Manual Lymphatic Yes Drainage Wound Care Yes Eval/Re-Eval Yes Frequency Times per week 2 Duration Number of Weeks 8 Addendums This patient is a No candidate for social or vocational rehab ? Patient/Guardian Yes verbally acknowledges understanding of treatment program and consents to further treatment? Patient/Guardian Yes verbally acknowledges understanding of diagnosis, prognosis and goals for treatment? Eval Complexity PT Charges 45052 - High Complexity PHYSICIAN CERTIFICATION: I certify the specified therapy services for Emmett Marquez are required, authorized, and reviewed every 30 days.
== END 2025-07-12 23:59 | disposition home or self-care (01) ==
LOC: PT 14:54
PROVIDERS: PCP Internal Medicine Adolescent Medicine; Visit Provider Internal Medicine Adolescent Medicine
DX: S81.802A Unspecified open wound, left lower leg, initial encounter (principal); L03.116 Cellulitis of left lower limb
CPT/HCPCS: 97163

== ENCOUNTER 2025-08-23 11:00 | Outpatient (RCR) | payer OTHER, SELFPAY ==
--- NOTE | 2025-08-23 13:44 | HMH.RHREAS ---
Rehab Reassessment Rehab OP Re-assessment Start: 08/02/25 14:48 Freq: Status: Active Protocol: Document 08/23/25 13:31 PHORARABELLA (Rec: 08/23/25 13:43 PHORNE [id number]) E-signed By Devaughn Swartz, PT [place] Wound Assessment Tool Assessment Wound size 1=Length x Width <4 sq cm Wound depth 3=Full thickness skin loss involving damage or necrosis of Wound edges 3=Well-defined, not attached to wound base Wound undermining 1=None present Necrotic tissue type 2=White/shanks non-viable tissue &/or non-adherent yellow slough Necrotic tissue 3=25% to 50% of wound covered amount Exudate type 3=Serosanguineous: thin, watery, pale red/pink Exudate amount 4=Moderate Skin color 2=Bright red &/or blanches to touch surrounding wound Peripheral tissue 5=Crepitus and/or pitting edema extends > or = 4 cm edema around wound Peripheral tissue 1=None present induration Granulation tissue 3=Bright, beefy red; <75% & > 25% of wound filled Epithelialization 4=25% to < 50% wound covered Wound assessment 35 total score Rehab Re-assessment Subjective Subjective Pt reports no pain at rest, but continued pain that is worse with prolonged standing. He also remains tender with all dressing changes. Objective Objective Notes L Superior Lateral lower leg wound: L= 1.0 cm, W= 1.0 cm, D= 0.2 cm. L Inferior Anterior Waddell wound: L= 1.0 cm, W= 1.0 cm, D = 0.4 cm. 50% shanks/yellow slough, 50% granulation tissue. Pain: L LE 4/10. Edema: 1+ pitting edema noted at this time in L LE. Assessment Progress Assessment Progressing as Expected Assessment Notes Pt has shown decreased wound surface area and increased healthy granulation tissue since his initial evaluation. Skilled therapy remains indicated to further reduce overall wound surface area and improve wound healing in order to aid pt improvement in QOL. Pt has been present for 3 treatment session since his initial evaluation 42 days ago. Minor modifications to STG noted this date with no modifications to LTG necessary at this time. Wound Patient Goals Wound Short Term In 4 wks pt will: Patient Goals 1) Reduce overall wound surface area by 50% 2) Decrease L LE circumferential measurements by 3 cm Wound Help Desk Technician In 8 wks pt will: Patient Goals 1) Reduce overall wound surface area by 75% 2) Decrease L LE edema to no pitting edema 3) Decrease L LE circumferential measurements by 10 cm 4) Decrease L LE pain to 2/10 5) be independent with donning/doffing compression garments. Plan Plan Updated POC sent to provider for their continued input and approval. Continued pt treatment may include any or all of the following interventions in order to improve functional outcomes and aid pt improvement in QOL: Frequency of Therapy 2 x/wk Duration of Therapy 8 wks Therapeutic Exercise Yes Including Home Exercise Program Manual Therapy Yes Techniques Neuromuscular Re- Yes education Therapeutic Yes Activities to Return to Previous Functional/Work Level ADL/Self Care Yes Education Orthotics/Bracing/ Yes Splinting Manual Lymphatic Yes Drainage Wound Care Yes Eval/Re-Eval Yes Time and Billing Re-Eval Time 17 Re-Eval Billing 0 Units Charge for PT No reassessment? PHYSICIAN CERTIFICATION: I certify the specified therapy services for Emmett Marquez are required, authorized, and reviewed every 30 days.
== END 2025-08-23 23:59 | disposition home or self-care (01) ==
LOC: PT 11:00
PROVIDERS: PCP Internal Medicine Adolescent Medicine; Visit Provider Internal Medicine Adolescent Medicine
DX: S81.802A Unspecified open wound, left lower leg, initial encounter (principal); L03.116 Cellulitis of left lower limb; I89.0 Lymphedema, not elsewhere classified
CPT/HCPCS: 97597

== ENCOUNTER 2025-09-20 13:00 | Outpatient (RCR) | payer OTHER, SELFPAY ==
--- NOTE | 2025-09-20 13:38 | HMH.RHREAS ---
Rehab Reassessment Rehab OP Re-assessment Start: 09/07/25 08:46 Freq: Status: Active Protocol: Document 09/20/25 13:23 PHORARABELLA (Rec: 09/20/25 13:38 PHORNE [id number]) E-signed By Devaughn Swartz, PT [place] Wound Assessment Tool Assessment Wound size 1=Length x Width <4 sq cm Wound depth 3=Full thickness skin loss involving damage or necrosis of Wound edges 3=Well-defined, not attached to wound base Wound undermining 1=None present Necrotic tissue type 2=White/shanks non-viable tissue &/or non-adherent yellow slough Necrotic tissue 2=<25% of wound bed covered amount Exudate type 3=Serosanguineous: thin, watery, pale red/pink Exudate amount 3=Small Skin color 2=Bright red &/or blanches to touch surrounding wound Peripheral tissue 3=Non-pitting edema extends > or= to 4 cm around wound edema Peripheral tissue 1=None present induration Granulation tissue 2=Bright, beefy red;75% to 100% of wound filled &/or tissue overgrowth Epithelialization 4=25% to < 50% wound covered Wound assessment 30 total score Rehab Re-assessment Subjective Subjective Pt reports no c/o pain at this time, but mild tenderness in the negrito-wound skin on his L lower leg. He feels his wounds are improved, but they continue to heal slowly. He remains busy with his work and spends much of his day standing. Objective Objective Notes BWAT score: 30 this date vs 35 on previous RA L Superior Lateral lower leg wound: L= 0.7 cm, W= 0.6 cm, D= 0.2 cm 77& reduction in total wound surface area since IE. L Inferior Anterior Wadd[place] wound: L= 0.7 cm, W= 0.6 cm, D = 0.3 cm. 10% shanks/yellow slough, 90% granulation tissue, 53% reduction in total wound surface area since IE. Pain: L LE 0/10 this date, at worst 3/10. Edema: 1+ pitting edema noted at this time in L LE in the negrito-wound skin. Assessment Progress Assessment Progressing as Expected Assessment Notes Pt has been present for 3 treatment sessions since his last reassessment was performed. Pt has again shown significant reduction of necrotic tissue and improvement in overall total wound surface area since his last reassessment. Healing continues to slower than expected for a typical patient of the same age, but is steadily improving. Skilled therapy remains indicated to aid reduction of necrotic tissue, improve healing rates, and reduce edema in order to aid pt improvement in overall QOL. Wound Patient Goals Wound Short Term In 4 wks pt will meet these goals in order to aid Patient Goals improvement in overall QOL and performance of all ADLs: 1) Reduce overall wound surface area by 75% Wound Penitentiary In 8 wks pt will meet these goals in order to aid Patient Goals improvement in overall QOL and performance of all ADLs: 1) Reduce overall wound surface area by 100% 2) Decrease pain in L LE to 2/10 at worst for 48 hrs 3) Decrease pitting edema to none throughout L LE. Plan Plan All prior goals were met and new goals have been established for the plan of care for treatment of this patient's condition. Frequency of Therapy 1 x/wk Duration of Therapy 8 wks ADL/Self Care Yes Education Manual Lymphatic Yes Drainage Wound Care Yes Eval/Re-Eval Yes Time and Billing Re-Eval Time 17 Re-Eval Billing 0 Units Charge for PT No reassessment? PHYSICIAN CERTIFICATION: I certify the specified therapy services for Jarrod Marquez are required, authorized, and reviewed every 30 days.
== END 2025-09-20 23:59 | disposition home or self-care (01) ==
LOC: PT 13:00
PROVIDERS: PCP Internal Medicine Adolescent Medicine; Visit Provider Internal Medicine Adolescent Medicine
DX: L03.116 Cellulitis of left lower limb (principal); S81.802A Unspecified open wound, left lower leg, initial encounter
CPT/HCPCS: 97597